=== PATIENT | male | born 1970 | race Caucasian/White ===

== ENCOUNTER 2018-08-06 14:41 | Inpatient (IN) ==
[2018-08-06] MEDS ORDERED: 0.9 % Sodium Chloride 1,000 ML IVC ONE (15:02)
[2018-08-06] MEDS ORDERED: methylPREDNISolone 125 MG/2 ML VIAL IVP ONE (15:02)
[2018-08-06] MEDS ORDERED: Ipratropium/Albuterol Neb 3 ML IH ONE (15:02)
--- NOTE | 2018-08-06 15:06 | Emergency Department Note ---
Disposition Clinical Impression: Splenomegaly, Thrombocytopenia, Hypokalemia Chest pain Qualifiers: Ischemic chest pain type: unspecified angina pectoris type Qualified Code(s): I25.9 - Anemia Qualifiers: Anemia type: unspecified type Qualified Code(s): D64.9 - Anemia, unspecified Disposition: Admitted As Inpatient Condition: Fair Time of Disposition: 16:55 General Adult HPI - General Chief complaint: ED Chest Pain Stated complaint: Chest pain Time Seen by Provider: 08/06/18 14:49 Source: patient Limitations: no limitations Nursing Notes Reviewed: Yes Vital Signs Reviewed: Yes - History of Present Illness HPI Narrative: 47yo male presents from home with bedside for evaluation of midsternal chest tightness with shortness of breath and cough. Actually one month ago, patient was diagnosed with bilateral otitis media and completed a course of amoxicillin. He still has difficulty hearing is still has pain in his ears with right greater than left. 2 weeks ago, patient finished a course of steroid and an antibiotic unknown to them and not listed in his chart. He was prescribed for respiratory symptoms. His respiratory symptoms have not improved and he continues to have cough with white sputum, shortness of breath with exertion. In the last several days, he has had midsternal chest tightness that is constant and unchanged with position or activity. Radiates strictly posterior to his back. His symptoms are not improved with his home albuterol nebulizer. PMH: COPD. Recent bilateral otitis media and recent "lung infection" both of which were managed outpatient. Hx hypokalemia on potassium supplementation. No history of hypertension, hyperlipidemia, CAD, diabetes. Patient does take aspirin 81 mg daily. Habits: Currently everyday smoker. ROS: positive: As above negative: Fever, chills, nausea, vomiting, unusual back pain. No ripping or tearing sensations. No numbness/weakness/tingling of the upper extremities. No neck pain. No change in bowel or bladder habits. No abdominal pain. Pain Scale: 10 - Related Data Previous Rx's Medication Instructions Recorded traMADol [Ultram] 50 mg PO Q6HR PRN #15 tablet 03/03/16 Albuterol Sulfate [Albuterol 2 puff IH Q4HR #1 inhaler 07/22/18 Inhaler] Loratadine [Claritin] 10 mg PO DAILY #14 capsule 07/22/18 PredniSONE [Deltasone] 60 mg PO DAILY #5 tablet 07/22/18 Allergies Allergy/AdvReac Type Severity Reaction Status Date / Time No Known Allergies Allergy Verified 08/06/18 14:45 All systems ED: reviewed and negative except as stated. Review of Systems: As Per HPI Past Medical History - Past Medical History Medical history: Reports: no medical history Psychiatric history: Reports: no psych history - Social History Smoking Status: Current every day smoker Smokeless Tobacco Status: No Alcohol use: Reports: occasionally Drug use: Reports: none Physical Exam Vital Signs Reviewed General: Patient is alert, oriented, and in mild distress-apparent discomfort; he is holding his chest, coughing, appears ill. Head: atraumatic, normocephalic Eye: normal appearance, PERRL, EOMI, no scleral icterus, no conjunctival injection ENT: mucous membranes moist, normal external ear exam. Right tympanic membrane has bulge with effusion. Left tympanic membrane with no bulge however appears dull with effusion. Neck: normal inspection, trachea midline, full ROM Chest: normal inspection, symmetric chest rise Respiratory: Good respiratory effort. Prolonged expiration phase. Right pulmonary vega have scant wheeze. Faint bibasilar fine crackles. Cardiovascular: Regular rate and rhythm. No clicks, rubs, gallops, or murmors. Normal heart sounds. Abdomen: Bowel sounds present normoactive x-4 quadrants. Abdomen is soft, nondistended, and nontender. No guarding or rebound. Musculoskeletal: Spontaneously moving all extremities. Skin: warm, dry, intact. Neuro: Alert and oriented x4. Sensation light touch intact. Psych: Patient's affect is appropriate for situation. - General Limitations: no limitations General appearance: alert, in no apparent distress Course Course Narrative: Clinically suspect patient's chest pain to be related to his pulmonary symptoms. Concerned as exam shows persistent effusion behind his tympanic membranes and concern for possibly outpatient management refractory pneumonia versus bronchitis versus acute exacerbation of COPD. patient given triple dose of DuoNeb's and 125 mg Solumedrol. Workup pending. EKG dated 08/02/20 1814:55 interpreted as sinus tachycardia with rate of 103. TN 135, QTC 422. Normal axis. Nonspecific ST-T changes. No previous EKG for comparison. Patient symptoms did not subjectively improved after nebulizers. His lung sounds did improve. Serum hematology shows no leukocytosis or leukocytopenia. Patient does have a erythrocytopenia and thrombocytopenia. Chest x-ray shows no acute cardiopulmonary process. Indeterminate nodular density on chest x-ray further evaluated by CT chest noncontrast. Incidentally , CT chest noncontrast showed nonspecific mild to moderate spinal megaly. This is concerning when taken in the context of his erythrocytopenia and thrombocytopenia. EKG is unremarkable. Troponin is normal. I discussed the above with the admitting hospitalist. He agrees to accept the patient for anemia, thrombus cytopenia, splenomegaly. Also discussed his recent otitis media, pulmonary history, and his hypokalemia. Chest X-Ray 08/06/18 15:03 IMPRESSION: 1. No acute cardiopulmonary process. 2. Indeterminate nodular density in the retrocardiac region on the lateral film, not well localized on the frontal film. Chest CT correlation recommended to exclude pulmonary nodule. D/ / 08/06/2018 15:27:53 Kashif John MD / [facility] Interpreting Provider: Kashif John MD Chest CT 08/06/18 15:59 IMPRESSION: 1. Bilateral lower lobe atelectasis and parenchymal scar without acute airspace consolidation. 2. Mild emphysema. 3. Multiple scattered nonspecific subcentimeter noncalcified nodules throughout both lungs, most likely reflecting benign granulomata. One of these nodules likely represents the previously identified chest x-ray opacity. While likely benign, suggest continued CT follow-up of these nodules, as advised below. 4. New nonspecific [id number] splenomegaly, of questionable clinical significance. RECOMMENDATIONS: Fleischner Society guidelines for follow-up and management of incidentally detected pulmonary nodules: Multiple Solid Nodules: Nodule size equals 6-8 mm In a low-risk patient, CT at 3-6 months, then consider CT at 18-24 months. In a high-risk patient, CT at 3-6 months, then CT at 18-24 months. Radiology 2017 http://pubs.[facility].org/doi/full/10.1148/radiol.[email or web address] D/ / 08/06/2018 16:43:45 Ti Caceres MD / [facility] Interpreting Provider: Ti Caceres MD Vital Signs Temperature 97.8 F 08/06/18 14:44 Pulse Rate 107 08/06/18 14:44 Respiratory Rate 22 08/06/18 14:44 Blood Pressure 146/83 08/06/18 14:44 O2 Sat by Pulse Oximetry 97 08/06/18 14:44 Temperature 97.8 F 08/06/18 14:56 Pulse Rate 107 08/06/18 17:05 Respiratory Rate 22 08/06/18 17:05 Blood Pressure 140/90 08/06/18 17:05 O2 Sat by Pulse Oximetry 96 08/06/18 17:05 Oxygen Delivery Oxygen Delivery Room Air Medical Decision Making - Lab Data Result diagrams: 08/06/18 15:03 08/06/18 15:03 Lab Results 08/06/18 08/06/18 08/06/18 Range/Units 15:03 15:03 15:33 WBC 5.0 (4.3-11.1) K/mcL RBC 3.72 L (4.19-5.50) M/mcL Hgb 11.4 L (12.9-16.9) g/dL Hct 33.9 L (37.5-50.1) % MCV 91.1 (83.0-100.0) fL MCH 30.6 (28.0-33.3) pg MCHC 33.6 (31.6-35.5) g/dL RDW 15.5 H (11.5-14.5) % Plt Count 51 L (140-400) K/mcL MPV 9.3 L (9.4-12.4) fL Immature Gran % 3.4 (0-4) % Seg Neutrophils % 4.1 % Lymphocytes % 40.7 % Monocytes % 51.2 % Eosinophils % 0.2 % Basophils % 0.4 % Neutrophils # 0.2 L (1.6-8.9) K/mcL Lymphocytes # 2.0 (0.6-4.6) K/mcL Monocytes # 2.6 H (0.0-1.3) K/mcL Eosinophils # 0.0 (0.0-0.6) K/mcL Basophils # 0.0 (0.0-0.2) K/mcL Nucleated RBCs/100 WBC 0.8 H (0) /100 WBC Reactive Lymphocytes Present A (Not Present) Platelet Estimate Decreased L (Normal) Immature Plt Fraction 3.4 (1.1-6.1) % Sodium 137 (136-145) mEq/L Potassium 3.1 L (3.5-5.1) mEq/L Chloride 100 (98-107) mEq/L Carbon Dioxide 27 (23-29) mEq/L BUN 24 H (6-20) mg/dL Creatinine 1.24 (0.70-1.30) mg/dL Est GFR ( Amer) > 60 (> 60) Est GFR (Non-Af Amer) > 60 (> 60) BUN/Creatinine Ratio 19 (6-26) Glucose 175 H (70-105) mg/dL Calculated Osmolality 292 (280-300) Lactic Acid 1.3 (0.5-2.2) mmol/L Calcium 9.0 (8.6-10.3) mg/dL Troponin I < 0.03 (< 0.04) ng/mL Salicylates < 2.5 L (15.0-30.0) mg/dL Attestation Statement - Attestation Attestation: I examined this patient and my medical decision-making was reviewed with the Resident Physician. I agree with the documented findings, disposition and treatment plan as described except to the extent set forth below. Hypokalemia, thrombocytopenia, transaminitis, chest pain. We will admit for evaluation of spinal megaly in the setting of trauma set up any and chest pain.
[2018-08-06 15:39] LABS: Nucleated Red Blood Cells 0.8 /100 WBC (0)
[2018-08-06 15:41] LABS: Basophils % 0.4 %; Eosinophils % 0.2 %; Hematocrit 33.9 % (37.5-50.1); Hemoglobin 11.4 g/dL (12.9-16.9); Immature Granulocytes % 3.4 % (0-4); Immature Platelets 3.4 % (1.1-6.1); Lymphocytes % 40.7 %; Mean Corpuscular HGB Conc 33.6 g/dL (31.6-35.5); Mean Corpuscular Hemoglobin 30.6 pg (28.0-33.3); Mean Corpuscular Volume 91.1 fL (83.0-100.0); Mean Platelet Volume 9.3 fL (9.4-12.4); Monocytes % 51.2 %; Neutrophils # 0.2 K/mcL (1.6-8.9); Red Blood Count 3.72 M/mcL (4.19-5.50); Red Cell Distribution Width 15.5 % (11.5-14.5); Segmented Neutrophils % 4.1 %
[2018-08-06 16:04] LABS: Monocytes # 2.6 K/mcL (0.0-1.3); Platelet Count 51 K/mcL (140-400)
[2018-08-06 16:06] LABS: BUN/Creatinine Ratio 19 (6-26); Blood Urea Nitrogen 24 mg/dL (6-20); Carbon Dioxide 27 mEq/L (23-29); Chloride 100 mEq/L (98-107); Glucose 175 mg/dL (70-105); Osmolality,Calculated 292 (280-300); Potassium 3.1 mEq/L (3.5-5.1); Reactive Lymphocytes Present (Not Present); Sodium 137 mEq/L (136-145); Troponin I < 0.03 ng/mL (< 0.04); eGFR For Non-African Americans > 60 (> 60)
[2018-08-06 16:11] LABS: Platelet Estimate Decreased (Normal)
[2018-08-06 17:17] LABS: Salicylate < 2.5 mg/dL (15.0-30.0)
[2018-08-06] MEDS ORDERED: traMADol 50 MG TABLET PO PRN (17:58)
[2018-08-06] MEDS ORDERED: Naloxone 0.4 MG/ML INJ IVP PRN (17:58)
[2018-08-06] MEDS ORDERED: Acetaminophen 325 MG TABLET PO PRN (17:58)
[2018-08-06] MEDS ORDERED: *HR* Promethazine 25 MG/ML VIAL IVP PRN (18:04)
[2018-08-06 18:05] LABS: Immature Reticulocyte % 17.6 % (11.0-38.0); Retculocyte # 0.02 M/mcL (0.05-0.10); Reticulocyte % 0.6 % (1.6-2.8)
[2018-08-06 18:20] LABS: Albumin 3.4 g/dL (3.5-5.7); Albumin/Globulin Ratio 1.5 (1.1-2.2); Bilirubin,Direct 0.4 mg/dL (0.0-0.2); Bilirubin,Indirect 0.4 mg/dL (0.0-1.2); Bilirubin,Total 0.8 mg/dL (0.3-1.0); Globulin 2.2 g/dL (2.4-3.5); Total Protein 5.6 g/dL (6.4-8.9)
--- NOTE | 2018-08-06 18:22 | Internal Med History&Physical ---
<DanetteallisonalexyRolando bhatt - Last Filed: 08/06/18 19:35> Date of Encounter: 08/06/18 Time of Encounter: 17:00 Internal Medicine - H&P: HPI Chief complaint: CP/Weakness/SOB Plans for Post Hospital Care: Home History of present illness: Mr. Manzo is a 47 year old male w/PMH of GERD presents from the ED w/CC of CP that began today and patient describes as centralized chest pain with radiation to center of back and shooting electrical pain down left leg. Associated sx: nausea, vomiting, SOB. No alleviating or aggravating factors. Denies previous cardiac hx or occurrence of sx. No recent cardiac w/u. Pt. also states he has been sick for the past 4 weeks after he swam several times in [facility]. Pt. was diagnosed w/bilateral ear infections and placed on PO amoxicillin. States it didn't help. Was seen in ED 2 weeks ago and placed on a different abx and given steroids d/t dx of PNA at the time. Pt. reports fever, chills, nausea, vomiting, abdominal pain, ear pain (worse in right than left), night sweats, allover aches and pains. Pt. reports headache associated w/ear pain but denies changes in vision, unusual bleeding, cough, chest congestion, diarrhea, constipation, dizziness, lightheadedness, pre-syncope, or syncope. Past Med Surg Social Fam HX - Past Medical History Source: patient, old records reviewed, obtained from family Medical history: GERD Psychiatric history: no psych history - Past Surgical History Additional surgical history: chicken bone removal- - Social History Smoking Status: Current every day smoker Packs per day: 2 PPD Smokeless Tobacco Status: No Alcohol use: occasionally Drug use: none Occupational status: employed Current living situation: Home, With Family Activity Level: Independent ambulation Recent Out of Country Travel Within the Last 8 Weeks: No Exposure or Possible Exposure to Illness During Travel: No - Family History Father Race: Family Member Ethnicity: Non- Living Status: Age at : 50 Cause of : Thyroid cancer Hx Family Cancer: Yes (Thyroid) Mother Race: Family Member Ethnicity: Non- Living Status: Still Living Hx Family Cardiac Disorders: Yes (Triple bypass, CAD) Hx Family Respiratory Disorders: Yes (COPD, Asthma) Hx Family Endocrine Disorder: Yes (DM) Brother Race: Family Member Ethnicity: Non- Living Status: Still Living Hx Family Endocrine Disorder: Yes (DM) Sister Race: Family Member Ethnicity: Non- Living Status: Still Living Hx Family Cardiac Disorders: Yes (Heart murmur) Internal Medicine - H&P: Meds traMADol [Ultram] 50 mg PO Q6HR PRN #15 tablet 03/03/16 [Rx] Albuterol Sulfate [Albuterol Inhaler] 2 puff IH Q4HR #1 inhaler 07/22/18 [Rx] Loratadine [Claritin] 10 mg PO DAILY #14 capsule 07/22/18 [Rx] PredniSONE [Deltasone] 60 mg PO DAILY #5 tablet 07/22/18 [Rx] 3 Allergy/AdvReac Type Severity Reaction Status Date / Time No Known Allergies Allergy Verified 08/06/18 14:45 All Systems PM: A 10-system review of systems was performed and is negative for pertinent findings except as documented above in the HPI. - Constitutional Constitutional: as per HPI, chills, fatigue, fever(s), weakness, no night sweats - EENT Eyes: no change in vision, no discharge, no pain, no photophobia Ears: as per HPI, decreased hearing (Right ear), ear pain (Bilateral), no ear discharge, no tinnitus Nose, mouth and throat: no dysphagia, no nasal discharge, no neck pain, no sore throat - Breasts Breasts: as per HPI - Cardiovascular Cardiovascular ROS IM: as per HPI, chest pain, dyspnea, dyspnea on exertion, no diaphoresis, no lightheadedness, no palpitations, no syncope - Respiratory Respiratory: dyspnea, dyspnea on exertion, no cough, no wheezing, no excessive phlegm production - Gastrointestinal Gastrointestinal: as per HPI, abdominal pain, nausea, vomiting, no diarrhea, no hematemesis, no hematochezia, no melena - Genitourinary Genitourinary ROS male: as per HPI - Musculoskeletal Musculoskeletal ROS IM: no numbness, no tingling - Integumentary Integumentary IM: no rash, no unusual bruising - Neurological Neurological ROS: no confusion, no convulsions, no focal weakness, no numbness, no tingling, no tremor(s) - Psychiatric Psychiatric: as per HPI - Endocrine Endocrine IM: as per HPI - Hematologic/Lymphatic Hematologic/Lymphatic: as per HPI, no easy bruising - Allergic/Immunologic Allergic/Immunologic: as per HPI - Constitutional Vitals: Temp Pulse Resp BP Pulse Ox 97.8 F 107 22 140/90 96 08/06/18 14:56 08/06/18 17:05 08/06/18 17:05 08/06/18 17:05 08/06/18 17:05 General appearance: Present: cooperative, mild distress (Weakness/SOB), A&O X 3 , pleasant, answers questions appropriately Exam: Patient examined at bedside in ED. Patient is ill-appearing and complaining of shortness of breath with exertion, fever, chills, nausea, vomiting, and generalized weakness for the past 4 weeks. Patient also reports unresolved bilateral otitis media and failed outpatient therapy 2. On admission, patient found to be thrombocytopenic with splenomegaly of unknown etiology. Patient also reports chest pain that began this morning as centralized in chest with radiation to left leg and center of back accompanied by shortness of breath, nausea, vomiting. Patient denies any other complaints at this time. Sepsis criteria currently due to heart rate of 107 and respiration rate of 22 with infection source likely otitis media bilaterally. VS: HR 107, RR 22, temp 97.8F , BP 146/83, SPO2 97% on room air. - Head Head exam: Present: atraumatic, normocephalic - Eye Eye exam: Present: PERRL, conjuntiva pink, sclera anicteric Pupils: Present: PERRL - ENT ENT exam: Present: normal exam - Neck Neck exam general surgery: Present: lymphadenopathy (Mild under ears), supple, trachea midline - Respiratory Respiratory exam: Present: CTAB. Absent: accessory muscle use, rales, rhonchi, wheezes - Cardiovascular Cardiovascular exam: Present: +S1, +S2, tachycardia - GI/Abdominal GI/Abdominal exam: Present: normal bowel sounds, soft, splenomegaly, no peritoneal signs. Absent: distended, tenderness - Rectal Rectal exam: Present: deferred - Additional comments: exam deferred. - Extremities Exam Extremities exam: Present: warm, radial pulses palpable and symmetrical. Absent : calf tenderness, cyanotic, pedal edema - Back Exam Back exam: Present: normal inspection - Neurological Exam Neurological exam: Present: alert, CN II-XII intact, oriented X3, no focal deficits. Absent: pronater drift, facial droop, speech deficit - Psychiatric Psychiatric exam: Present: normal affect, normal mood - Skin Skin exam: Present: dry, intact Internal Med - H&P Results - Labs CBC & Chem 7: 08/06/18 15:03 08/06/18 15:03 - EKG Data EKG shows normal: sinus rhythm - EKG Data Prior EKG available for review: no EKG comments: 08/06/18 18:48 EKG dated 08/06/18 shows sinus tachycardia with rate greater than 99. - Diagnostic Studies Chest x-ray Additional comments: Impressions Chest X-Ray 08/06/18 15:03 IMPRESSION: 1. No acute cardiopulmonary process. 2. Indeterminate nodular density in the retrocardiac region on the lateral film, not well localized on the frontal film. Chest CT correlation recommended to exclude pulmonary nodule. D/ / 08/06/2018 15:27:53 Kashif John MD / [facility] Interpreting Provider: Kashif John MD CT scan - chest Additional comments: Impressions Chest CT 08/06/18 15:59 IMPRESSION: 1. Bilateral lower lobe atelectasis and parenchymal scar without acute airspace consolidation. 2. Mild emphysema. 3. Multiple scattered nonspecific subcentimeter noncalcified nodules throughout both lungs, most likely reflecting benign granulomata. One of these nodules likely represents the previously identified chest x-ray opacity. While likely benign, suggest continued CT follow-up of these nodules, as advised below. 4. New nonspecific [id number] splenomegaly, of questionable clinical significance. RECOMMENDATIONS: Fleischner Society guidelines for follow-up and management of incidentally detected pulmonary nodules: Multiple Solid Nodules: Nodule size equals 6-8 mm In a low-risk patient, CT at 3-6 months, then consider CT at 18-24 months. In a high-risk patient, CT at 3-6 months, then CT at 18-24 months. Radiology 2017 http://pubs.rsna.org/doi/full/10.1148/radiol.[email or web address] D/ / 08/06/2018 16:43:45 Ti Caceres MD / [facility] Interpreting Provider: Ti Caceres MD - Assessment and plan (1) Chest pain Current Visit: Yes Status: Acute Assessment and plan: Acute CP that began today and patient describes as centralized chest pain with radiation to center of back and shooting electrical pain down left leg. Associated sx: nausea, vomiting, SOB. No alleviating or aggravating factors. Denies previous cardiac hx or occurrence of sx. No recent cardiac w/u. No CP during assessment. Pt. states SOB begins w/exertion. Echocardiogram. Continuous cardiac telemetry. Initial troponin less than 0.03. Will trend. Nothing by mouth at midnight Wednesday for planned nuclear pharm stress test on Wednesday if troponins remain within normal limits. Consider cardiology consult if troponins, echocardiogram, and/or stress test results abnormal. ASA. Lipitor 80 mg once. SL nitroglycerin when necessary. Pt. discussed w/Dr. Moreno who agrees w/plan of care. Pt. is high risk d/t current CP /SOB/N/V; unresolved bilateral otitis media for the past 4 weeks and failure of OP therapy x2, sepsis criteria, current thrombocytopenia and splenomegaly of unknown etiology, current anemia of unknown etiology, and risk factors of recent swimming in [place] and symptoms of generalized weakness and feeling ill for the past 4 weeks. Inpatient. Qualifiers: Ischemic chest pain type: unspecified angina pectoris type Qualified Code(s ): I25.9 - Chronic ischemic heart disease, unspecified (2) Sepsis Current Visit: Yes Status: Acute Assessment and plan: Acute sepsis criteria w/HR of 107 and RR of 22. Bilateral otitis media present for the past 4 weeks w/failed OP therapy x2. Pt. also reports swimming in [facility] 6 weeks ago and feeling weak/sick for the past 4 weeks. Blood cultures x2 ordered. Respiratory infection panel d/t recent PNA and flu-like sx. EBV and Monotest. Lyme antibody. LR IVC @ 75 mLs/HR. Lactic 1.3. IVPB Rocephin 2,000 mg daily for infection coverage of resistant otitis media. Will adjust abx coverage based on culture and panel results if warranted. ID consult ordered and discussed w/Dr. Bowens and I appreciate the consult and recommendations as always. Monitor pt. and f/u labs closely for signs of increasing infection. Qualifiers: Sepsis type: sepsis due to unspecified organism Qualified Code(s): A41.9 - Sepsis, unspecified organism (3) Otitis media, chronic, bilateral Current Visit: Yes Status: Acute Assessment and plan: Acute on chronic bilateral otitis media for the past 4 weeks. Pt. reports swimming in [place] 6 weeks ago and feeling sick for the past 4 weeks. Bilateral ear infections present for 4 weeks and pt. has failed OP abx therapy x2. IVPB Rocephin 2,000 mg daily ordered for infection coverage. ENT consult ordered and discussed w/Dr. Bach and I appreciate the consult and recommendations as always. Stair-step pain medications for pain mgmt. (4) Weakness generalized Current Visit: Yes Status: Acute Assessment and plan: Acute on chronic generalized weakness for the past 4 weeks. Pt. reports swimming [email or web address] times during vacation 6 weeks ago and feeling sick for the past 4 weeks. ID consult ordered and discussed w/Dr. Bowens and I appreciate the consult and recommendations as always. Falls/safety precautions. Up with assist only. (5) SOB (shortness of breath) Current Visit: Yes Status: Acute Assessment and plan: Acute SOB w/CP sx. Denies home O2 use. Reports being dxd w/PNA two weeks ago and placed on PO steroids and abx. CXR today shows no acute cardiopulmonary process. Indeterminate nodular density in the retrocardiac region on the lateral film not well localized on the frontal film. Chest CT correlation recommended to exclude pulmonary nodule. Supplemental O2 w/titration and SpO2 monitoring PRN. (6) Nausea & vomiting Current Visit: Yes Status: Acute Assessment and plan: Acute nausea and vomiting. IVP Phenergan 12.5 mg Q6HR PRN for N/V. Monitor I&O. Clear liquid diet to be advanced as tolerated. Qualifiers: Vomiting type: cyclical vomiting Vomiting Intractability: intractable Qualified Code(s): G43.A1 - Cyclical vomiting, intractable (7) Thrombocytopenia Current Visit: Yes Status: Acute Assessment and plan: Acute thrombocytopenia w/platelets of 51 on admission. Unknown etiology. Denies hx of cancer or being immunocompromised. Monotest and EBV ordered. HemeOnc consult ordered and discussed w/Dr. Joshua and I appreciate the consult and recommendations as always. Monitor pt. and f/u labs. (8) Splenomegaly Current Visit: Yes Status: Acute Assessment and plan: Acute splenomegaly of unknown etiology. EBV and Monotests ordered. Platelets 51. HemeOnc consult ordered and discussed w/Dr. Joshua and I appreciate the consult and recommendations as always. Monitor pt. and f/u labs. (9) Hypokalemia Current Visit: Yes Status: Acute Assessment and plan: Acute hypokalemia w/potassium of 3.1 on admission. Pt. received 40 mEq PO once in ED. Will re-check potassium at 23:00. Continuous cardiac telemetry. (10) Hyperglycemia Current Visit: Yes Status: Acute Assessment and plan: Acue hyperglycemia of 175 on admission, likely d/t steroids prescribed for PNA. Denies hx of DM but mother and brother have DM. BG checks ACHS. Will add correction sliding scale insulin if warranted. (11) Anemia Current Visit: Yes Status: Acute Assessment and plan: Acute anemia of unknown etiology. Pt. denies hx or unusual bleeding. Hepatic panel. B12, Folate, and Iron profiles ordered. Monitor f/u labs closely. Qualifiers: Anemia type: unspecified type Qualified Code(s): D64.9 - Anemia, unspecified (12) GERD (gastroesophageal reflux disease) Current Visit: Yes Status: Chronic Assessment and plan: Hx of chronic GERD. GI cocktail. Will use PPIs judiciously d/t current splenomegaly. IVP Phenergan 12.5 mg Q6HR PRN for N/V. Qualifiers: Esophagitis presence: esophagitis presence not specified Qualified Code(s) : K21.9 - Gastro-esophageal reflux disease without esophagitis (13) DVT prophylaxis Current Visit: Yes Status: Acute Assessment and plan: Bilateral SCDs on LEs for DVT prophylaxis d/t current thrombocytopenia. - Time Spent With Patient Total time spent is greater than 50% in coordination of care (as documented) at patient's floor/unit and/or counseling patient: Greater than 35 minutes <Chu Moreno T - Last Filed: 08/07/18 07:53> Date of Encounter: 08/07/18 Internal Medicine - H&P: HPI History of present illness: Mr. Manzo is a 47 year old male All Systems PM: A 10-system review of systems was performed and is negative for pertinent findings except as documented above in the HPI. - Constitutional Vitals: Temp Pulse Resp BP Pulse Ox 97.9 F 91 16 125/85 91 08/07/18 04:17 08/07/18 04:17 08/07/18 04:17 08/07/18 04:17 08/07/18 04:17 Internal Med - H&P Results - Labs CBC & Chem 7: 08/07/18 02:36 08/07/18 02:36 Labs: Short CBC 08/07/18 Range/Units 02:36 WBC 10.2 D (4.3-11.1) K/mcL Hgb 10.6 L (12.9-16.9) g/dL Hct 31.6 L (37.5-50.1) % Plt Count 55 L (140-400) K/mcL Neutrophils # 0.4 L (1.6-8.9) K/mcL BMP 08/06/18 08/07/18 22:31 02:36 Sodium 138 Potassium 4.2 D 4.2 Chloride 104 Carbon Dioxide 25 BUN 21 H Creatinine 1.05 Glucose 169 H Calcium 8.8 Cardiac Enzymes 08/06/18 08/07/18 Range/Units 20:48 02:36 Troponin I < 0.03 < 0.03 (< 0.04) ng/mL Liver Function 08/06/18 08/07/18 Range/Units 17:47 02:36 Total Bilirubin 0.8 0.5 (0.3-1.0) mg/dL Direct Bilirubin 0.4 H (0.0-0.2) mg/dL AST 85 H 93 H (13-39) Units/L ALT 148 H 138 H (7-52) Units/L Alkaline Phosphatase 93 89 (34-104) Units/L Albumin 3.4 L 3.3 L (3.5-5.7) g/dL - Assessment and plan (1) Chest pain Current Visit: Yes Status: Acute Qualifiers: Ischemic chest pain type: unspecified angina pectoris type (2) Splenomegaly Current Visit: Yes Status: Acute (3) Thrombocytopenia Current Visit: Yes Status: Acute (4) Anemia Current Visit: Yes Status: Acute Qualifiers: Anemia type: unspecified type Qualified Code(s): D64.9 - Anemia, unspecified (5) Hypokalemia Current Visit: Yes Status: Acute (6) Hyperglycemia Current Visit: Yes Status: Acute (7) SOB (shortness of breath) Current Visit: Yes Status: Acute (8) Nausea & vomiting Current Visit: Yes Status: Acute Qualifiers: Vomiting type: cyclical vomiting Vomiting Intractability: intractable Qualified Code(s): G43.A1 - Cyclical vomiting, intractable (9) GERD (gastroesophageal reflux disease) Current Visit: Yes Status: Chronic Qualifiers: Esophagitis presence: esophagitis presence not specified Qualified Code(s) : K21.9 - Gastro-esophageal reflux disease without esophagitis (10) DVT prophylaxis Current Visit: Yes Status: Acute (11) Weakness generalized Current Visit: Yes Status: Acute (12) Sepsis Current Visit: Yes Status: Acute Qualifiers: Sepsis type: sepsis due to unspecified organism Qualified Code(s): A41.9 - Sepsis, unspecified organism (13) Otitis media, chronic, bilateral Current Visit: Yes Status: Acute - Time Spent With Patient Total time spent is greater than 50% in coordination of care (as documented) at patient's floor/unit and/or counseling patient: - Attending Attestation Patient independently interviewed, assessed and examined by myself independent of the nurse practitioner. Mr. Manzo is a 47-year-old male with a past history of heavy tobacco dependence who presented with a 4-5 week period of progressive body aches with severe night sweats. Initial concern was for chest pain however further history elicited symptoms more involving body pains. The patient has recently had otitis media symptoms treated with 2 rounds of antibiotics as an outpatient with persistent symptoms. Of note the patient did recently travel to a [place] and went swimming in the [place] about one week prior to the symptoms beginning. Patient denies any rashes or diarrhea. On physical exam the patient is ill- appearing in mild distress secondary to discomfort. He describes episodes of drenching night sweats and I witnessed one of these episodes upon my evaluation. Patient found to have thrombocytopenia and spleenomegaly and mild anemia as well. He was empirically started on Rocephin and we will admit the patient as inpatient for failing outpatient treatment. We will have patient evaluated by hematology, infectious disease, and ENT secondary to ID recommendation. We will closely follow his platelet count. Extensive infectious disease workup initiated as well as work up for hemolysis. There is also concern for hematologic malignancy ie lymphoma. Peripheral smear ordered. Will consider flow cytometry pending initial work up and hemeonc recs. General - moderate distress secondary to pain and ill appearing with excessive diaphoresis Cardio - regular rate and rhythm no murmurs appreciated Respiratory - coarse breath sounds throughout Derm -no obvious rashes appreciated
[2018-08-06] MEDS ORDERED: GI Cocktail 40 ML EACH PO ONE (18:27)
[2018-08-06] MEDS ORDERED: Nitroglycerin 0.4 MG TAB.SUBL SL PRN (19:26)
[2018-08-06] MEDS ORDERED: Aspirin Enteric Coated 325 MG Tablet PO SCH (19:30)
[2018-08-06] MEDS ORDERED: Aspirin Enteric Coated 325 MG Tablet PO STA (19:36)
[2018-08-06] MEDS: cefTRIAXone 2,000 MG in 0.9 % Sodium Chloride Mini Bag 100 ML IVPB SCH (20:39)
[2018-08-06] MEDS: Ringers Solution, Lactated 1,000 ML IVC SCH (20:39)
[2018-08-06 21:57] LABS: Adenovirus Not Detected (Not Detect); Bordetella Pertussis Not Detected (Not Detect); Chlamydophila pneumoniae Not Detected (Not Detect); Coronavirus 229E Not Detected (Not Detect); Coronavirus HKU1 Not Detected (Not Detect); Coronavirus NL63 Not Detected (Not Detect); Coronavirus OC43 Not Detected (Not Detect); Human Metapneumovirus Not Detected (Not Detect); Human Rhinovirus/Enterovirus DETECTED (Not Detect); Influenza A Subtype 2009 H1 Not Detected (Not Detect); Influenza A Untypeable Not Detected (Not Detect); Influenza B Not Detected (Not Detect); Mycoplasma pneumoniae Not Detected (Not Detect); Parainfluenza Virus 1 Not Detected (Not Detect); Parainfluenza Virus 2 Not Detected (Not Detect); Parainfluenza Virus 3 Not Detected (Not Detect); Parainfluenza Virus 4 Not Detected (Not Detect); Respiratory Syncytial Virus Not Detected (Not Detect)
[2018-08-07 02:45] LABS: Eosinophils % 0.2 %; Hemoglobin 10.6 g/dL (12.9-16.9)
[2018-08-07 02:47] LABS: Basophils % 0.3 %; Hematocrit 31.6 % (37.5-50.1); Immature Granulocytes % 4.1 % (0-4); Immature Platelets 3.1 % (1.1-6.1); Lymphocytes # 2.4 K/mcL (0.6-4.6); Lymphocytes % 23.1 %; Mean Corpuscular HGB Conc 33.5 g/dL (31.6-35.5); Mean Corpuscular Hemoglobin 30.7 pg (28.0-33.3); Mean Corpuscular Volume 91.6 fL (83.0-100.0); Mean Platelet Volume 9.8 fL (9.4-12.4); Monocytes % 68.9 %; Neutrophils # 0.4 K/mcL (1.6-8.9); Nucleated Red Blood Cells 0.5 /100 WBC (0); Red Blood Count 3.45 M/mcL (4.19-5.50); Red Cell Distribution Width 15.4 % (11.5-14.5); Segmented Neutrophils % 3.4 %
[2018-08-07 02:48] LABS: Platelet Count 55 K/mcL (140-400)
[2018-08-07 03:04] LABS: Platelet Estimate Decreased (Normal); Reactive Lymphocytes Present (Not Present)
[2018-08-07 03:05] LABS: Alanine Aminotransferase 138 Units/L (7-52); Albumin 3.3 g/dL (3.5-5.7); Albumin/Globulin Ratio 1.4 (1.1-2.2); Alkaline Phosphatase 89 Units/L (34-104); Aspartate Amino Transferase 93 Units/L (13-39); BUN/Creatinine Ratio 20 (6-26); Bilirubin,Total 0.5 mg/dL (0.3-1.0); Blood Urea Nitrogen 21 mg/dL (6-20); Calcium 8.8 mg/dL (8.6-10.3); Carbon Dioxide 25 mEq/L (23-29); Chloride 104 mEq/L (98-107); Chol/HDL Ratio 3.4 (0-4.9); Cholesterol 89 mg/dL (< 200); Globulin 2.3 g/dL (2.4-3.5); Glucose 169 mg/dL (70-105); HDL Cholesterol 26 mg/dL (40-59); LDL Cholesterol,Calculated 48 mg/dL (0-99); Magnesium 2.1 mg/dL (1.6-2.6); Osmolality,Calculated 293 (280-300); Potassium 4.2 mEq/L (3.5-5.1); Sodium 138 mEq/L (136-145); Total Protein 5.6 g/dL (6.4-8.9); Triglycerides 74 mg/dL (< 150); eGFR For Non-African Americans > 60 (> 60)
--- NOTE | 2018-08-07 08:43 | ENT - Consult Note ---
Date of Encounter: 08/08/18 Time of Encounter: 08:40 Assessment and Plan (1) Otitis media, chronic, bilateral Current Visit: Yes Status: Chronic On exam today, the patient has bilateral chronic serous otitis media which is not suppurative/bacterial in appearance. Therefore I do not feel that he has an acute or chronic bacterial ear infection. He likely has developed serous otitis media after an upper respiratory infection one month ago and because of his nasal polyps and smoking history, this led to eustachian tube dysfunction and therefore development of his bilateral serous otitis media. Additional antibiotics for treatment of his serous otitis media will not improve the fluid in the middle ear space. That is why it did not improve with 2 courses of antibiotics over the past month. Once this patient with nasal polyps and allergic rhinitis and a heavy smoking history develops chronic serous otitis media, it can take up to 3 months for the fluid to resolve on its own with maximal medical treatment. The patient has not been treated medically for either his nasal polyps or his serous otitis media except for being given 2 courses of antibiotics. I discussed with the patient that for the fluid to drain through the eustachian tubes, I would recommend the followin. Stop smoking 2. Fluticasone nasal spray 2 sprays each nostril twice daily. I discussed with the patient that he needs to use this medication daily because if he does not medication will not be effective in helping to resolve the fluid in his ears or treat the nasal polyps. 3. Antihistamine/decongestant combinations such as Claritin D twice daily. I discussed with the patient he will also need to take this medication twice daily for the foreseeable future. I discussed with the patient that if the fluid does not resolve after 3 months of maximum medical therapy, he can be considered for myringotomy with possible pressure equalization tube placement. But this can be evaluated as an outpatient after 3 months of the maximal medical therapy described above. I would not recommend ear tube placement at this time because the fluid has a good chance of resolving on its own with the above therapy. Again, I do not feel that he has an infectious serous otitis media and therefore does not require antibiotic treatment for his serous otitis media but rather eustachian tube dysfunction which has not been properly treated to allow the eustachian tube to open and the middle ear fluid to drain normally. The patient's intermittent dizziness when he tilts his head back when lying down is likely related to the serous otitis media and should improve as the fluid resolves. He does not require any treatment for the dizziness but rather treatment for the chronic serous otitis media as described above. I do not feel that the bilateral chronic serous otitis media or nasal polyps is the reason why he has decreased energy, chest pain, cough or the reason for his splenomegaly, or thrombocytopenia. He has no evidence of chronic or acute bacterial sinusitis but rather nasal polyps. He does have a normal white count. We will defer to primary service for workup of the chest pain, malaise, cough, splenomegaly and thrombocytopenia. Discussed above in detail with patient and his . Questions answered. Please have patient follow up in 1 month in the ENT clinic after discharge for both a hearing test with audiology and further evaluation of his ear fluid and nasal polyps by the ENT service as an outpatient. I will sign off. Please call me if you have any questions. (2) Nasal sinus polyp Current Visit: Yes Status: Chronic On exam today, the patient has significant nasal polyps bilaterally. He has not been diagnosed with this before but likely has been going on for a significant period of time given the extent of the nasal polyps. He has no evidence of acute or chronic bacterial sinusitis on exam. Therefore I do not feel that he needs to have a CT sinus at this visit. He does not have evidence of bacterial sinusitis on exam and therefore no antibiotic treatment for his nasal polyps is required. He also is asymptomatic from his nasal polyps. I will start him on fluticasone nasal spray 2 sprays each nostril twice daily given the extent of his nasal polyps as well as an antihistamine/decongestant combination for his untreated allergic rhinitis and nasal polyps. He has likely developed bilateral chronic serous otitis media after an upper respiratory infection one month ago and it has not resolved yet. Please see below A/P for treatment for chronic bilateral serous otitis media. He will need to be followed up as an outpatient for his nasal polyps for further workup and treatment. I discussed with the patient and his that he will need to stay on the fluticasone nasal spray twice daily as well as the antihistamine/decongestant twice daily for the foreseeable future given his allergic rhinitis symptoms and nasal polyp development. I also discussed with the patient that he should stop smoking as this is significantly contributing to his sinus/nasal/ear problems. (3) Other allergic rhinitis Current Visit: Yes Status: Chronic The patient has symptoms of untreated allergic rhinitis which is likely lead to the development of his nasal polyps. I have discussed with the patient that he needs to take the fluticasone nasal spray and antihistamine/decongestant combination twice daily for treatment of this. He will need follow-up as an outpatient with the ENT service for further treatment of his allergic rhinitis and nasal polyps. (4) Cigarette nicotine dependence Current Visit: Yes Status: Chronic The patient states that he smokes 2 packs a day for many years. I have discussed with the patient that this is contributing to his nasal and sinus issues. I also discussed his increased risk of head and neck cancer given his long smoking history. I have encouraged the patient to stop smoking. Qualifiers: Qualified Code(s): F17.210 - Nicotine dependence, cigarettes, uncomplicated History of Present Illness Consult date: 08/07/18 Reason for ENT Consult: other (Bilateral chronic middle ear fluid) Comment: bilateral middle ear fluid Requesting physician: Celio Galindo History of present illness: The patient is a 47-year-old male who complains of decreased hearing in both ears for the past month after he had an upper respiratory infection. He states that he had nasal congestion and cold-like symptoms proximal and one month ago and gradually notices hearing was decreased and his ears felt full. He went to the urgent care and was treated for an ear infection with antibiotics. He completed the antibiotic course and did not improve. He went back to the urgent care 2 weeks later because he had increased cough and his hearing had not improved and was again treated for pneumonia with antibiotic and steroids. He continues to feel malaise, body aches, decreased energy and no change in his hearing. He denies any otorrhea, or otalgia. He states that intermittently when he tilts his head back when lying down he feels dizzy and has to sit up. This does not happen every time and has not happened recently. He went to the emergency room last night because he was having chest pain and was not improving with his decreased energy and appetite. He has a history of smoking 2 packs a day for many years. He also describes sneezing and allergy symptoms especially when he is working out and the vega. He has also had nasal congestion and was treated with an antihistamine, Claritin, and had improvement of his symptoms. However he does not take this medication every day and has not taken it in the past few months. He denies any postnasal drip or rhinorrhea. Past Med Surg Social Fam HX - Past Medical History Medical history: no medical history, GERD Psychiatric history: no psych history - Past Surgical History Additional surgical history: chicken bone removal- - Social History Smoking Status: Heavy tobacco smoker Packs per day: 2 Smokeless Tobacco Status: No Alcohol use: occasionally Drug use: none Occupational status: employed - Family History Father Race: Family Member Ethnicity: Non- Living Status: Age at : 50 Cause of : Thyroid cancer Hx Family Cancer: Yes (Thyroid) Mother Race: Family Member Ethnicity: Non- Living Status: Still Living Hx Family Cardiac Disorders: Yes (Triple bypass, CAD) Hx Family Respiratory Disorders: Yes (COPD, Asthma) Hx Family Endocrine Disorder: Yes (DM) Brother Race: Family Member Ethnicity: Non- Living Status: Still Living Hx Family Endocrine Disorder: Yes (DM) Sister Race: Family Member Ethnicity: Non- Living Status: Still Living Hx Family Cardiac Disorders: Yes (Heart murmur) Medications and Allergies Albuterol Sulfate [Albuterol Inhaler] 2 puff IH Q4HR #1 inhaler 07/22/18 [Rx] Loratadine [Claritin] 10 mg PO DAILY #14 capsule 07/22/18 [Rx] Esomeprazole Magnesium [Nexium] 20 mg PO DAILY 08/07/18 [History] 3 Allergy/AdvReac Type Severity Reaction Status Date / Time No Known Allergies Allergy Verified 08/06/18 14:45 ENT - ROS All systems PM: reviewed and no additional remarkable complaints except as stated (Chest pain, cough) - Constitutional Constitutional ROS: as per HPI - EENT Nose, mouth and throat: no abnormal hearing, no bleeding gums, no change in voice, no dental pain, no disequilibrium, no dizziness, no dry mouth, no dysphagia, no epistaxis, no facial pain, no halitosis, no headache(s), no hoarseness, no lip swelling, no mouth lesions, no mouth pain, no nasal congestion, no nasal discharge, no nasal obstruction, no nasal trauma, no neck mass, no neck pain, no nose pain, no odynophagia, no post-nasal drip, no sinus pain, no sinus pressure, no sore throat, no throat swelling, no tongue swelling , no vertigo - Cardiovascular Cardiovascular ROS IM: as per HPI, no chest pain, no chest pain at rest, no chest pain with activity, no dyspnea, no edema, no irregular heart rhythm, no radiating jaw, neck or arm pain, no lightheadedness, no orthopnea, no paroxysmal nocturnal dyspnea, no syncope - Respiratory as per HPI, no cough, no dyspnea, no hemoptysis, no dyspnea on exertion, no wheezing, no snoring, no stridor, no pain on inspiration, no chest congestion, no excessive phlegm production, no change in phlegm color, no pain with cough - Gastrointestinal Gastrointestinal: as per HPI, no coffee ground emesis, no constipation, no diarrhea, no dyspepsia, no dysphagia, no heartburn, no nausea, no odynophagia, no vomiting - Genitourinary Genitourinary ROS: as per HPI, no difficulty urinating, no dysuria, no urinary frequency, no urinary incontinence, no urinary urgency - Musculoskeletal Musculoskeletal ROS: as per HPI, no abnormal gait, no muscle weakness, no myalgias, no neck pain, no numbness, no stiffness, no tingling - Integumentary Integumentary: as per HPI, no acne, no bleeding lesions, no change in hair, no change in nails, no change in pigmentation, no changing lesions, no erythema, no furuncle, no lesions, no new lesions, no non-healing lesions, no pruritus, no rash, no skin ulcer, no sores - Neurological Neurological ROS: as per HPI, no abnormal gait, no abnormal hearing, no abnormal speech, no disequilibrium, no dizziness, no focal weakness, no frequent falls, no headache(s), no lack of coordination, no numbness, no paresthesias, no restless legs, no syncope, no tingling, no tremor(s), no vertigo, no weakness - Psychiatric Psychiatric general: as per HPI, no abnormal sleep pattern, no anxiety, no auditory hallucinations - Endocrine Endocrine: as per HPI, no cold intolerance, no deeping of the voice, no excessive sweating, no fatigue, no flushing, no heat intolerance, no palpitations, no polydipsia, no polyphagia, no polyuria - Hematologic/Lymphatic as per HPI, no easy bleeding, no easy bruising, no lymphadenopathy - Allergic/Immunologic as per HPI, no tongue swelling, no throat swelling, no itchy eyes, no seasonal rhinorrhea, no uticaria, no wheezing, no GI upset with certain foods, no lip swelling ENT Exam Initial Vital Signs Temp Pulse Resp BP Pulse Ox 97.8 F 107 22 146/83 97 08/06/18 14:44 08/06/18 14:44 08/06/18 14:44 08/06/18 14:44 08/06/18 14:44 - ENT Other (see additional findings) - Additional Findings Normocephalic, atraumatic Eyes: Pupils equal to light external motions intact Ears: Normal. And as bilaterally, normal external auditory canals bilaterally, right tympanic membrane is retracted with yellow serous otitis media filling the entire middle ear space. There is no evidence of purulence or bulging of the tympanic membrane. The left tympanic membrane is also mildly retracted with yellow serous otitis media filling the middle ear space. There is no purulence. Nares: Nasal dorsum normal, nasal ala and vestibule are normal bilaterally. There are nasal polyps filling the nasal cavity bilaterally. There is no purulence seen. The septum is fairly straight. The inferior turbinates are normal bilaterally. The patient's nasal airway is narrowed secondary to the nasal polyps. Oropharynx/oral cavity: The lips and gums are intact. The dentition is poor. The hard and soft palate are normal. The floor of mouth is normal with no mucosal lesions. The tongue is normal with no masses and no mucosal lesions. The tongue is mobile normally. The buccal mucosa is normal. The posterior pharynx is also normal no evidence of postnasal drainage. Neck: Supple with no lymphadenopathy. There are no masses palpable, the trachea is midline. There is no crepitance. Thyroid: There is no thyromegaly, no thyroid masses are palpable. Neuro: Cranial nerves II through XII are intact. Exam Initial Vital Signs Temp Pulse Resp BP Pulse Ox 97.8 F 107 22 146/83 97 08/06/18 14:44 08/06/18 14:44 08/06/18 14:44 08/06/18 14:44 08/06/18 14:44 Results - Labs 08/08/18 04:13 08/08/18 04:13 Abnormal lab results RBC 3.45 M/mcL (4.19-5.50) L 08/07/18 02:36 Hgb 10.6 g/dL (12.9-16.9) L 08/07/18 02:36 Hct 31.6 % (37.5-50.1) L 08/07/18 02:36 RDW 15.4 % (11.5-14.5) H 08/07/18 02:36 Plt Count 55 K/mcL (140-400) L 08/07/18 02:36 Reticulocyte # 0.02 M/mcL (0.05-0.10) L 08/06/18 17:47 Immature Gran % 4.1 % (0-4) H 08/07/18 02:36 Neutrophils # 0.4 K/mcL (1.6-8.9) L 08/07/18 02:36 Monocytes # 7.0 K/mcL (0.0-1.3) H 08/07/18 02:36 Nucleated RBCs/100 WBC 0.5 /100 WBC (0) H 08/07/18 02:36 Reactive Lymphocytes Present (Not Present) A 08/07/18 02:36 Platelet Estimate Decreased (Normal) L 08/07/18 02:36 Percent Retic 0.6 % (1.6-2.8) L 08/06/18 17:47 Retic Hgb Equivalent 36.7 pg (28.61-36.33) H 08/06/18 17:47 BUN 21 mg/dL (6-20) H 08/07/18 02:36 Glucose 169 mg/dL (70-105) H 08/07/18 02:36 Transferrin 155 mg/dL (203-362) L 08/06/18 17:47 Direct Bilirubin 0.4 mg/dL (0.0-0.2) H 08/06/18 17:47 AST 93 Units/L (13-39) H 08/07/18 02:36 ALT 138 Units/L (7-52) H 08/07/18 02:36 Lactate Dehydrogenase 2017 Units/L (140-271) H 08/06/18 17:47 Serum Total Protein 5.6 g/dL (6.4-8.9) L 08/07/18 02:36 Albumin 3.3 g/dL (3.5-5.7) L 08/07/18 02:36 Globulin 2.3 g/dL (2.4-3.5) L 08/07/18 02:36 HDL Cholesterol 26 mg/dL (40-59) L 08/07/18 02:36 Salicylates < 2.5 mg/dL (15.0-30.0) L 08/06/18 15:03 Entero/Rhino (PCR) DETECTED (Not Detect) A 08/06/18 20:45 Diabetes panel 08/06/18 08/06/18 08/07/18 Range/Units 17:47 22:31 02:36 Sodium 138 (136-145) mEq/L Potassium 4.2 D 4.2 (3.5-5.1) mEq/L Chloride 104 (98-107) mEq/L Carbon Dioxide 25 (23-29) mEq/L BUN 21 H (6-20) mg/dL Creatinine 1.05 (0.70-1.30) mg/dL Glucose 169 H (70-105) mg/dL Calcium 8.8 (8.6-10.3) mg/dL AST 85 H 93 H (13-39) Units/L ALT 148 H 138 H (7-52) Units/L Alkaline Phosphatase 93 89 (34-104) Units/L Albumin 3.4 L 3.3 L (3.5-5.7) g/dL Triglycerides 74 (< 150) mg/dL HDL Cholesterol 26 L (40-59) mg/dL Calcium panel 08/06/18 08/07/18 Range/Units 17:47 02:36 Calcium 8.8 (8.6-10.3) mg/dL Albumin 3.4 L 3.3 L (3.5-5.7) g/dL Pituitary panel 08/06/18 08/07/18 Range/Units 22:31 02:36 Sodium 138 (136-145) mEq/L Potassium 4.2 D 4.2 (3.5-5.1) mEq/L Chloride 104 (98-107) mEq/L Carbon Dioxide 25 (23-29) mEq/L BUN 21 H (6-20) mg/dL Creatinine 1.05 (0.70-1.30) mg/dL Glucose 169 H (70-105) mg/dL Calcium 8.8 (8.6-10.3) mg/dL Adrenal panel 08/06/18 08/06/18 08/07/18 Range/Units 17:47 22:31 02:36 Sodium 138 (136-145) mEq/L Potassium 4.2 D 4.2 (3.5-5.1) mEq/L Chloride 104 (98-107) mEq/L Carbon Dioxide 25 (23-29) mEq/L BUN 21 H (6-20) mg/dL Creatinine 1.05 (0.70-1.30) mg/dL Glucose 169 H (70-105) mg/dL Calcium 8.8 (8.6-10.3) mg/dL Total Bilirubin 0.8 0.5 (0.3-1.0) mg/dL AST 85 H 93 H (13-39) Units/L ALT 148 H 138 H (7-52) Units/L Alkaline Phosphatase 93 89 (34-104) Units/L Albumin 3.4 L 3.3 L (3.5-5.7) g/dL All other labs normal. Consult Discharge Plan - Plan Referrals: Noni Wells, [employer] [Primary Care Provider] - - Attending Attestation I personally have seen and examined this patient and spent 30 minutes on exam
[2018-08-07] MEDS: Ringers Solution, Lactated 1,000 ML IVC SCH (10:30)
[2018-08-07] MEDS: cefTRIAXone 2,000 MG in 0.9 % Sodium Chloride Mini Bag 100 ML IVPB SCH (10:31)
[2018-08-07] MEDS: Aspirin Enteric Coated 81 MG Tablet PO SCH (10:33)
--- NOTE | 2018-08-07 11:24 | Oncology Inp Consult Note ---
Date of Encounter: 08/07/18 Time of Encounter: 09:45 Assessment and Plan (1) Rhinovirus infection Status: Acute Assessment and plan: Clinically, this gentleman is likely recovering from a rhinovirus infection. I think this may be the cause of some his upper respirator tract infection symptoms. I do not think this is the cause of his low platelets or neutropenia. Continue supportive measures. (2) Neutropenia Status: Acute Assessment and plan: This gentleman has neutropenia with a significant monocytosis and thrombocytopenia. CT imaging with mild splenomegaly. This constellation of findings may be secondary to an underlying viral infection or underlying bone marrow conditions such as leukemia. Agree with workup that has been performed thus far. I have added a CMV PCR as well. In addition to his infectious disease evaluation, I have obtained a BCR able to look for allowing CML. Peripheral blood flow cytometry has been obtained to look for hairy cell leukemia. I will also order a CT-guided bone marrow aspirate and biopsy to be performed tomorrow. LDH has been repeated for tomorrow morning as well. Despite his elevated LDH, he has no evidence of underlying hemolysis with a normal bilirubin. I do not think this is TTP/HUS given lack of other constitutional symptoms and absence of hemolysis. I would consider broadening antimicrobial coverage to include cefepime instead of ceftriaxone for pseudomonal coverage given his neutropenia and infectious symptoms. I did discuss this with the patient and his today. We will continue to follow along quite closely. Please do not hesitate to call with any concerns or questions. Qualifiers: Neutropenia type: unspecified Qualified Code(s): D70.9 - Neutropenia, unspecified (3) Thrombocytopenia Status: Acute Assessment and plan: Platelet count is adequate for bone marrow aspirate and biopsy. Please see above for further details of evaluation - Data of Consult Requesting Physician: Celio Galindo Primary Care Provider: Noni Wells CNP - Consult Narrative Reason for consult: Cytopenias History of present illness: Mr. Manzo is a 47 year old male with malignant medication about 5 weeks ago. Shortly after returning from his vacation, he developed right-sided hearing loss. This is followed by coughing, shortness of breath and significant fatigue. 4 weeks ago, he is placed on a course of antibiotics, prednisone and an inhaler. Symptoms did not respond to this new to the emergency department 2 weeks Y his steroids were increased and he is given another course of antibiotics. Yesterday, his fatigue worsening started to develop chest discomfort in the middle of his chest. He has not had any weight loss through this process. He has had drenching night sweats for the past week. No fever or chills. He denies any headache, blurred or double vision. He has had some dizziness. No skin rash, petechiae or purpura. No recent bug bite or exposure. No other sick contacts and the household outside his who had bronchitis. This prompted him to present to the emergency department were CT of the chest was obtained and revealed Bilateral lower lobe atelectasis and parenchymal scar without acute airspace consolidation. Multiple scattered nonspecific subcentimeter noncalcified nodules throughout both lungs, most likely reflecting benign granulomata. New nonspecific [id number] splenomegaly. Although the white count was normal, he had significant neutropenia with an ANC of 200. He also had thrombocytopenia with a platelet count of 51,000. LDH was markedly elevated at over 2000. Haptoglobin is currently pending. Total bilirubin was normal at 0.5. Monospot was negative. Rhinovirus PCR was positive. Urine and blood cultures are negative to date. He has been placed on Rocephin. He is also being assessed for other viral or bacterial etiologies. Infectious disease has been consulted. ENT was consult it. He is found to have serous otitis media and recommendations were made. Past Med Surg Social Fam HX - Past Medical History Medical history: no medical history, GERD Psychiatric history: no psych history - Past Surgical History Additional surgical history: chicken bone removal- - Social History Smoking Status: Heavy tobacco smoker Packs per day: 2 Smokeless Tobacco Status: No Alcohol use: occasionally Drug use: none - Family History Father Race: Family Member Ethnicity: Non- Living Status: Age at : 50 Cause of : Thyroid cancer Hx Family Cancer: Yes (Thyroid) Mother Race: Family Member Ethnicity: Non- Living Status: Still Living Hx Family Cardiac Disorders: Yes (Triple bypass, CAD) Hx Family Respiratory Disorders: Yes (COPD, Asthma) Hx Family Endocrine Disorder: Yes (DM) Brother Race: Family Member Ethnicity: Non- Living Status: Still Living Hx Family Endocrine Disorder: Yes (DM) Sister Race: Family Member Ethnicity: Non- Living Status: Still Living Hx Family Cardiac Disorders: Yes (Heart murmur) Medications and Allergies Albuterol Sulfate [Albuterol Inhaler] 2 puff IH Q4HR #1 inhaler 07/22/18 [Rx] Loratadine [Claritin] 10 mg PO DAILY #14 capsule 07/22/18 [Rx] 3 Allergy/AdvReac Type Severity Reaction Status Date / Time No Known Allergies Allergy Verified 08/06/18 14:45 All systems: reviewed and no additional remarkable complaints except as stated Constitutional: Present: lethargy, night sweats, weakness Eyes: Present: change in vision Ears: Present: decreased hearing, ear pain Nose, mouth and throat: Present: as per HPI Cardiovascular: Present: chest pain Respiratory: Present: dyspnea on exertion Gastrointestinal: Present: as per HPI Genitourinary: as per HPI Musculoskeletal: Present: as per HPI Integumentary: Present: as per HPI Oncology - Exam - Constitutional Vitals: Temp Pulse Resp BP Pulse Ox 97.8 F 90 18 132/90 91 08/07/18 10:53 08/07/18 10:53 08/07/18 10:53 08/07/18 10:53 08/07/18 10:53 General appearance: average body habitus, cooperative, no acute distress - Head Head exam: Present: atraumatic, normal inspection, normocephalic - Eye Eye exam: Present: normal appearance, conjuntiva pink, sclera anicteric - Expanded ENT Exam Teeth exam: Present: dental caries - Neck Neck exam: Present: full ROM, normal inspection - Respiratory Respiratory exam: Present: CTAB - Cardiovascular Cardiovascular exam: Present: RRR - GI/Abdominal GI/Abdominal exam: Present: normal bowel sounds, soft - Extremities Exam Extremities exam: Present: normal capillary refill, normal inspection - Back Exam Back exam: Present: normal inspection - Skin Skin exam: Present: normal color Oncology - Results Labs: 3 08/07/18 08/07/18 08/07/18 02:36 02:36 02:36 WBC 10.2 D RBC 3.45 L Hgb 10.6 L Hct 31.6 L MCV 91.6 MCH 30.7 MCHC 33.5 RDW 15.4 H Plt Count 55 L MPV 9.8 Reticulocyte # Immature Gran % 4.1 H Seg Neutrophils % 3.4 Lymphocytes % 23.1 Monocytes % 68.9 Eosinophils % 0.2 Basophils % 0.3 Neutrophils # 0.4 L Lymphocytes # 2.4 Monocytes # 7.0 H Eosinophils # 0.0 Basophils # 0.0 Nucleated RBCs/100 WBC 0.5 H Reactive Lymphocytes Present A Platelet Estimate Decreased L Immature Plt Fraction 3.1 Smear Path Review Percent Retic Immature Retic Fraction Retic Hgb Equivalent Sodium 138 Potassium 4.2 Chloride 104 Carbon Dioxide 25 BUN 21 H Creatinine 1.05 Est GFR ( Amer) > 60 Est GFR (Non-Af Amer) > 60 BUN/Creatinine Ratio 20 Glucose 169 H Calculated Osmolality 293 Calcium 8.8 Magnesium 2.1 Iron % Saturation Transferrin Total Bilirubin 0.5 Direct Bilirubin Indirect Bilirubin AST 93 H ALT 138 H Alkaline Phosphatase 89 Lactate Dehydrogenase Troponin I < 0.03 Serum Total Protein 5.6 L Albumin 3.3 L Globulin 2.3 L Albumin/Globulin Ratio 1.4 Triglycerides 74 Cholesterol 89 LDL Cholesterol, Calc 48 VLDL Cholesterol, Calc 15 HDL Cholesterol 26 L Cholesterol/HDL Ratio 3.4 Vitamin B12 Chlamy pneumoniae PCR Adenovirus (PCR) B. pertussis DNA (PCR) B.parapertussis DNA PCR Coronavirus OC43 (PCR) Coronavirus HKU1 (PCR) Coronavirus 229E (PCR) Coronavirus NL63 (PCR) Human Metapneumovir PCR Infectious [place] Assay Influenza A (H1) PCR Influ A (H1N1/09) PCR Influenza A (H3) PCR Influenza A Untype (PCR) Influenza Type B (PCR) M.pneumoniae DNA (PCR) Parainfluenza 1 (PCR) Parainfluenza 2 (PCR) Parainfluenza 3 (PCR) Parainfluenza 4 (PCR) RSV (PCR) Entero/Rhino (PCR) 3 08/06/18 08/06/18 08/06/18 22:31 20:48 20:45 WBC RBC Hgb Hct MCV MCH MCHC RDW Plt Count MPV Reticulocyte # Immature Gran % Seg Neutrophils % Lymphocytes % Monocytes % Eosinophils % Basophils % Neutrophils # Lymphocytes # Monocytes # Eosinophils # Basophils # Nucleated RBCs/100 WBC Reactive Lymphocytes Platelet Estimate Immature Plt Fraction Smear Path Review See Below Percent Retic Immature Retic Fraction Retic Hgb Equivalent Sodium Potassium 4.2 D Chloride Carbon Dioxide BUN Creatinine Est GFR ( Amer) Est GFR (Non-Af Amer) BUN/Creatinine Ratio Glucose Calculated Osmolality Calcium Magnesium Iron % Saturation Transferrin Total Bilirubin Direct Bilirubin Indirect Bilirubin AST ALT Alkaline Phosphatase Lactate Dehydrogenase Troponin I < 0.03 Serum Total Protein Albumin Globulin Albumin/Globulin Ratio Triglycerides Cholesterol LDL Cholesterol, Calc VLDL Cholesterol, Calc HDL Cholesterol Cholesterol/HDL Ratio Vitamin B12 Chlamy pneumoniae PCR Adenovirus (PCR) B. pertussis DNA (PCR) B.parapertussis DNA PCR Coronavirus OC43 (PCR) Coronavirus HKU1 (PCR) Coronavirus 229E (PCR) Coronavirus NL63 (PCR) Human Metapneumovir PCR Infectious [place] Assay Influenza A (H1) PCR Influ A (H1N1) PCR Influenza A (H3) PCR Influenza A Untype (PCR) Influenza Type B (PCR) M.pneumoniae DNA (PCR) Parainfluenza 1 (PCR) Parainfluenza 2 (PCR) Parainfluenza 3 (PCR) Parainfluenza 4 (PCR) RSV (PCR) Entero/Rhino (PCR) 3 08/06/18 08/06/18 08/06/18 20:45 17:47 17:47 WBC RBC Hgb Hct MCV MCH MCHC RDW Plt Count MPV Reticulocyte # Immature Gran % Seg Neutrophils % Lymphocytes % Monocytes % Eosinophils % Basophils % Neutrophils # Lymphocytes # Monocytes # Eosinophils # Basophils # Nucleated RBCs/100 WBC Reactive Lymphocytes Platelet Estimate Immature Plt Fraction Smear Path Review Percent Retic Immature Retic Fraction Retic Hgb Equivalent Sodium Potassium Chloride Carbon Dioxide BUN Creatinine Est GFR ( Amer) Est GFR (Non-Af Amer) BUN/Creatinine Ratio Glucose Calculated Osmolality Calcium Magnesium Iron 82 % Saturation 38 Transferrin 155 L Total Bilirubin 0.8 Direct Bilirubin 0.4 H Indirect Bilirubin 0.4 AST 85 H ALT 148 H Alkaline Phosphatase 93 Lactate Dehydrogenase Troponin I Serum Total Protein 5.6 L Albumin 3.4 L Globulin 2.2 L Albumin/Globulin Ratio 1.5 Triglycerides Cholesterol LDL Cholesterol, Calc VLDL Cholesterol, Calc HDL Cholesterol Cholesterol/HDL Ratio Vitamin B12 Chlamy pneumoniae PCR Not Detected Adenovirus (PCR) Not Detected B. pertussis DNA (PCR) Not Detected B.parapertussis DNA PCR Not Detected Coronavirus OC43 (PCR) Not Detected Coronavirus HKU1 (PCR) Not Detected Coronavirus 229E (PCR) Not Detected Coronavirus NL63 (PCR) Not Detected Human Metapneumovir PCR Not Detected Infectious [place] Assay Negative Influenza A (H1) PCR Not Detected Influ A (H1N1/09) PCR Not Detected Influenza A (H3) PCR Not Detected Influenza A Untype (PCR) Not Detected Influenza Type B (PCR) Not Detected M.pneumoniae DNA (PCR) Not Detected Parainfluenza 1 (PCR) Not Detected Parainfluenza 2 (PCR) Not Detected Parainfluenza 3 (PCR) Not Detected Parainfluenza 4 (PCR) Not Detected RSV (PCR) Not Detected Entero/Rhino (PCR) DETECTED A 3 08/06/18 08/06/18 08/06/18 17:47 17:47 17:47 WBC RBC Hgb Hct MCV MCH MCHC RDW Plt Count MPV Reticulocyte # 0.02 L Immature Gran % Seg Neutrophils % Lymphocytes % Monocytes % Eosinophils % Basophils % Neutrophils # Lymphocytes # Monocytes # Eosinophils # Basophils # Nucleated RBCs/100 WBC Reactive Lymphocytes Platelet Estimate Immature Plt Fraction Smear Path Review Percent Retic 0.6 L Immature Retic Fraction 17.6 Retic Hgb Equivalent 36.7 H Sodium Potassium Chloride Carbon Dioxide BUN Creatinine Est GFR ( Amer) Est GFR (Non-Af Amer) BUN/Creatinine Ratio Glucose Calculated Osmolality Calcium Magnesium Iron % Saturation Transferrin Total Bilirubin Direct Bilirubin Indirect Bilirubin AST ALT Alkaline Phosphatase Lactate Dehydrogenase 2017 H Troponin I Serum Total Protein Albumin Globulin Albumin/Globulin Ratio Triglycerides Cholesterol LDL Cholesterol, Calc VLDL Cholesterol, Calc HDL Cholesterol Cholesterol/HDL Ratio Vitamin B12 998 Chlamy pneumoniae PCR Adenovirus (PCR) B. pertussis DNA (PCR) B.parapertussis DNA PCR Coronavirus OC43 (PCR) Coronavirus HKU1 (PCR) Coronavirus 229E (PCR) Coronavirus NL63 (PCR) Human Metapneumovir PCR Infectious [place] Assay Influenza A (H1) PCR Influ A (H1N1/09) PCR Influenza A (H3) PCR Influenza A Untype (PCR) Influenza Type B (PCR) M.pneumoniae DNA (PCR) Parainfluenza 1 (PCR) Parainfluenza 2 (PCR) Parainfluenza 3 (PCR) Parainfluenza 4 (PCR) RSV (PCR) Entero/Rhino (PCR) CT OF THE CHEST WITHOUT CONTRAST 08/06/2018 4:25 pm FINDINGS: Mediastinum: The visualized thyroid is unremarkable. There is no pathologically enlarged lymphadenopathy within the chest or mediastinum. Calcified mediastinal lymph nodes are noted. The intrathoracic aorta is unremarkable without evidence of aneurysm. No pericardial abnormality is identified. Lungs/pleura: The central airways are patent. There is a background of mild emphysema. There are curvilinear bands of opacity within the bilateral lower lobes with additional ground-glass opacity evident. This likely reflects a combination of atelectasis and parenchymal scar. No localized focus of acute airspace consolidation is identified to suggest pneumonia. There is no evidence of a pneumothorax or pleural effusion. Scattered calcified granulomata are noted. There are multiple scattered subcentimeter noncalcified nodules also noted throughout both lungs, the largest measuring 7 mm within the subpleural portion of the superior segment of the left lower lobe. One of these nodules could conceivably represent the nodules as seen on prior chest x-ray. No dominant pulmonary mass is evident. Upper Abdomen: The visualized adrenal glands are unremarkable. There is [id number] splenomegaly, new from prior exam, nonspecific. There are a few stable low-density lesions within the liver parenchyma, the largest measuring approximately 1.2 cm within the left hepatic lobe, similar to the prior study, and likely representing benign cysts. Soft Tissues/Bones: There is degenerative change throughout the visualized thoracolumbar spine. No osteolytic or osteoblastic lesion is seen. CT/CT chest wo con IMPRESSION: 1. Bilateral lower lobe atelectasis and parenchymal scar without acute airspace consolidation. 2. Mild emphysema. 3. Multiple scattered nonspecific subcentimeter noncalcified nodules throughout both lungs, most likely reflecting benign granulomata. One of these nodules likely represents the previously identified chest x-ray opacity. While likely benign, suggest continued CT follow-up of these nodules, as advised below. 4. New nonspecific [id number] splenomegaly, of questionable clinical significance. Consult Discharge Plan - Plan Referrals: Noni Wells CNP [Primary Care Provider] - Inpatient Charges Provider: Dr. Divya Joshua Consult Charges: 28820
[2018-08-07] MEDS: Ketorolac 30 MG/ML VIAL IVP PRN ×3 (13:55→22:32)
--- NOTE | 2018-08-07 19:46 | Internal Med Progress Note ---
Hospitalist Progress Note - Encounter Date of Encounter: 08/07/18 Time of Encounter: 11:00 - Subjective Interval History: Patient this morning still with chest pressure in addition to generalized weakness. Cardiac biomarkers are negative and echocardiogram/nuclear medicine stress test pending Hematology and infectious disease following with workup in progress - Exam Vitals: Temp Pulse Resp BP Pulse Ox 98.8 F 91 17 108/67 92 08/07/18 19:26 08/07/18 19:26 08/07/18 19:26 08/07/18 19:26 08/07/18 19:26 Exam: Gen.: Nonacute distress, alert and oriented 3 ENT: Mucosal membranes moist Respiratory: Lungs are clear to auscultation bilaterally without any wheezing rhonchi or rales Cardiovascular: Normal S1 and S2 regular rate rhythm no murmurs rubs or gallops Abdomen: Soft, nontender and nondistended with positive bowel sounds Extremities: No lower extremity edema Skin: Normal color - Assessment and Plan (1) Sepsis Current Visit: Yes Status: Acute Assessment and Plan: On admission Acute sepsis criteria w/HR of 107 and RR of 22. Bilateral otitis media present for the past 4 weeks w/failed OP therapy x2. Pt. also reports swimming in [facility] 6 weeks ago and feeling weak/sick for the past 4 weeks. Blood cultures x2 ordered. Respiratory infection panel d/t recent PNA and flu- like sx. EBV and Monotest. Lyme antibody. LR IVC @ 75 mLs/HR. Lactic 1.3. IVPB Rocephin 2,000 mg daily for infection coverage of resistant otitis media. Will adjust abx coverage based on culture and panel results if warranted. ID following (2) Weakness generalized Current Visit: Yes Status: Acute Assessment and Plan: Acute on chronic generalized weakness for the past 4 weeks. Pt. reports swimming in [facility] several times during vacation 6 weeks ago and feeling sick for the past 4 weeks. ID consult and appreciate recommendations (3) Chest pain Current Visit: Yes Status: Acute Assessment and Plan: Cardiac Biomarkers are negative Cardiogram and nuclear medicine stress test pending Continue to monitor on telemetry (4) Splenomegaly Current Visit: Yes Status: Acute Assessment and Plan: Acute splenomegaly on imaging of unknown etiology. EBV and Monotests ordered. Platelets 51. HemeOnc following and workup in progress (5) Thrombocytopenia Current Visit: Yes Status: Acute Assessment and Plan: Acute thrombocytopenia w/platelets of 51 on admission. Unknown etiology. Hematology following as above (6) Anemia Current Visit: Yes Status: Acute Assessment and Plan: Acute anemia of unknown etiology. Hematology following as above (7) Hypokalemia Current Visit: Yes Status: Acute Assessment and Plan: Resolved; continue to monitor (8) Otitis media, chronic, bilateral Current Visit: Yes Status: Chronic Assessment and Plan: ENT consulted and appreciate recommendations (9) DVT prophylaxis Current Visit: Yes Status: Acute Assessment and Plan: Bilateral SCDs on LEs for DVT prophylaxis d/t current thrombocytopenia. - Time Spent with Patient Total time spent is greater than 50% in coordination of care (as documented) at patient's floor/unit and/or counseling patient: Internal Medicine: Result - Labs CBC & Chem 7: 08/07/18 02:36 08/07/18 02:36 Labs: Short CBC 08/07/18 Range/Units 02:36 WBC 10.2 D (4.3-11.1) K/mcL Hgb 10.6 L (12.9-16.9) g/dL Hct 31.6 L (37.5-50.1) % Plt Count 55 L (140-400) K/mcL Neutrophils # 0.4 L (1.6-8.9) K/mcL BMP 08/06/18 08/07/18 22:31 02:36 Sodium 138 Potassium 4.2 D 4.2 Chloride 104 Carbon Dioxide 25 BUN 21 H Creatinine 1.05 Glucose 169 H Calcium 8.8 Cardiac Enzymes 08/06/18 08/07/18 Range/Units 20:48 02:36 Troponin I < 0.03 < 0.03 (< 0.04) ng/mL Liver Function 08/07/18 Range/Units 02:36 Total Bilirubin 0.5 (0.3-1.0) mg/dL AST 93 H (13-39) Units/L ALT 138 H (7-52) Units/L Alkaline Phosphatase 89 (34-104) Units/L Albumin 3.3 L (3.5-5.7) g/dL - Impressions Impressions Echocardiogram 08/07/18 07:00 Impressions: LVEF 65%. Normal LV chamber size, wall thickness and function. Normal right ventricular structure and function. No significant valvular dysfunction. Unable to estimate RVSP due to lack of TR jet. Left Ventricular Wall Motion: Rest Echo Findings All wall segments showed normal motion. Findings: Study Quality * Technically adequate exam. ECG Findings * Normal sinus rhythm. Left Ventricle * LVEF 65%. * Normal LV chamber size, wall thickness and function. * Normal left ventricular diastolic function. Right Ventricle * Normal right ventricular structure and function. Left Atrium * Normal left atrial size. Right Atrium * Normal right atrial size. Interatrial Septum * Interatrial septum not well evaluated. Aortic Valve * Trileaflet aortic valve. * Trileaflet aortic valve with normal function. * No aortic regurgitation. * No aortic stenosis. Mitral Valve * Normal mitral valve structure and function. * Trace mitral regurgitation. Tricuspid Valve * Normal tricuspid valve structure and function. * No tricuspid regurgitation. * Estimated RA pressure is 5 mmHg. * Unable to estimate RVSP due to lack of TR jet. Pulmonic Valve * Pulmonic valve not well visualized. * Trace pulmonic regurgitation. Aorta * Normally sized aortic root. Pericardium * The pericardium appears normal. IVC * Normal IVC dimensions and inspiratory collapse. Consult Discharge Plan - Plan Referrals: Noni Wells, [employer] [Primary Care Provider] - (1) Sepsis Qualifiers: Sepsis type: sepsis due to unspecified organism Qualified Code(s): A41.9 - Sepsis, unspecified organism (3) Chest pain Qualifiers: Ischemic chest pain type: unspecified angina pectoris type (6) Anemia Qualifiers: Anemia type: unspecified type Qualified Code(s): D64.9 - Anemia, unspecified
[2018-08-07] MEDS: Loratadine/Pseudophed (12 HR) 1 EACH TABLET PO SCH (20:48)
[2018-08-07] MEDS: Fluticasone Propionate Nasal 50 MCG/SPRAY BOTTLE NS SCH (20:49)
[2018-08-08] MEDS: Ringers Solution, Lactated 1,000 ML IVC SCH ×2 (02:25→16:05)
[2018-08-08] MEDS: Ketorolac 30 MG/ML VIAL IVP PRN ×4 (02:36→16:40)
[2018-08-08] MEDS ORDERED: Regadenoson 0.4 MG/5 ML SYRINGE IVP ONE (06:12)
[2018-08-08 06:14] LABS: Hemoglobin 10.1 g/dL (12.9-16.9)
[2018-08-08 06:16] LABS: Hematocrit 30.5 % (37.5-50.1); Immature Platelets 4.6 % (1.1-6.1); Mean Corpuscular HGB Conc 33.1 g/dL (31.6-35.5); Mean Corpuscular Hemoglobin 30.3 pg (28.0-33.3); Mean Corpuscular Volume 91.6 fL (83.0-100.0); Mean Platelet Volume 10.3 fL (9.4-12.4); Nucleated Red Blood Cells 0.3 /100 WBC (0); Red Blood Count 3.33 M/mcL (4.19-5.50); Red Cell Distribution Width 15.7 % (11.5-14.5)
[2018-08-08 06:22] LABS: Platelet Count 45 K/mcL (140-400)
[2018-08-08 06:37] LABS: Alanine Aminotransferase 124 Units/L (7-52); Albumin 3.2 g/dL (3.5-5.7); Albumin/Globulin Ratio 1.5 (1.1-2.2); Alkaline Phosphatase 91 Units/L (34-104); Aspartate Amino Transferase 92 Units/L (13-39); BUN/Creatinine Ratio 22 (6-26); Bilirubin,Total 0.7 mg/dL (0.3-1.0); Blood Urea Nitrogen 28 mg/dL (6-20); Calcium 8.8 mg/dL (8.6-10.3); Carbon Dioxide 26 mEq/L (23-29); Chloride 100 mEq/L (98-107); Globulin 2.2 g/dL (2.4-3.5); Glucose 96 mg/dL (70-105); Osmolality,Calculated 281 (280-300); Potassium 3.8 mEq/L (3.5-5.1); Sodium 133 mEq/L (136-145); Total Protein 5.4 g/dL (6.4-8.9); eGFR For Non-African Americans 60 (> 60)
[2018-08-08] MEDS: cefTRIAXone 2,000 MG in 0.9 % Sodium Chloride Mini Bag 100 ML IVPB SCH (08:12)
[2018-08-08] MEDS: Fluticasone Propionate Nasal 50 MCG/SPRAY BOTTLE NS SCH (08:13)
[2018-08-08 09:01] LABS: INR 1.4; Prothrombin Time 15.6 Seconds (9.4-12.1)
[2018-08-08] MEDS ORDERED: *HR* Midazolam HCl 2 MG/2 ML VIAL IVP ONE (09:44)
[2018-08-08] MEDS ORDERED: *HR* FentaNYL (PF) 100 MCG/2 ML VIAL IVP ONE (09:45)
--- NOTE | 2018-08-08 09:46 | Pre-Sedation Evaluation ---
Pre-sedation evaluation - Pre-sedation checklist Date of procedure: 08/08/18 Procedure: bone marrow biopsy Recent Vitals: Last Vital Signs Temp 99.6 F 08/08/18 07:11 Pulse 105 08/08/18 07:11 Resp 17 08/08/18 07:11 BP 142/96 08/08/18 07:11 Pulse Ox 95 08/08/18 07:11 H&P (including ROS) documented in medical record: Yes Previous reaction to sedatives/anesthetics: No Dietary Status: NPO after Midnight ASA Classification *see protocol: CLASS II-Mild systemic disease Plan of Care: Pt appropriate candidate for procedure/moderate/conscious sedation , Risks/benefits of procedure/sedation discussed w/ patient/family Cardiac Registry (Cardio Only) - Functional Capacity - Clincal Frailty Scale
[2018-08-08] MEDS ORDERED: *HR* Midazolam HCl 2 MG/2 ML VIAL ONE (09:50)
--- NOTE | 2018-08-08 10:01 | IR Procedure Note ---
Date of procedure: 08/08/18 Consent Obtained: Written consent Timeout: Correct patient and procedure verified, Time out performed, Skin prep completed Local anesthetic: Lidocaine 1% Indications: Neutropenia Procedure Performed: Bone marrow asp/biopsy Was there an bookkeeper assistant present: No Estimated blood loss (cc): 0 Complications: None; Tolerated procedure well Post Procedure Treatment Plan: Monitor on floor Specimen: To path
[2018-08-08 10:18] LABS: Estimated Average Glucose 154 mg/dl
--- NOTE | 2018-08-08 10:49 | Oncology Inp Progress Note ---
<Alfonso Reeder - Last Filed: 08/08/18 18:24> Date of Encounter: 08/08/18 Time of Encounter: 10:25 (1) Neutropenia Status: Acute Assessment and plan: This gentleman has neutropenia with a significant monocytosis and thrombocytopenia. CT imaging with mild splenomegaly. This constellation of findings may be secondary to an underlying viral infection or underlying bone marrow conditions such as leukemia. CT-guided bone marrow aspirate and biopsy completed this AM. LDH decreased from 2016 to 1999. WBC increased from 10.2K to 19.1K. Plt ct decreased from 55K to 45K. Agree with workup that has been performed thus far. Despite his elevated LDH, he has no evidence of underlying hemolysis with a normal bilirubin. I do not think this is TTP/HUS given lack of other constitutional symptoms and absence of hemolysis. Would still consider broadening antimicrobial coverage to include cefepime instead of ceftriaxone for pseudomonal coverage given his neutropenia and infectious symptoms. Especially with elevation in WBC today and patient's tachycardia and elevation in temp. Pending CMV PCR; BCR able to look for CML; Peripheral blood flow cytometry for hairy cell leukemia. Update (18:00): Call from lab this morning with blasts on peripheral blood smear , concern for AML. Plan to transfer patient to [facility] for further evaluation and treatment. Patient has been accepted, but pending bed assignment. Patient and aware of possible diagnosis. Should have some information from bone marrow biopsy tomorrow. Qualifiers: Neutropenia type: unspecified Qualified Code(s): D70.9 - Neutropenia, unspecified (2) Thrombocytopenia Status: Acute Assessment and plan: Plt count decreased today to 45K. Please see above for further details of evaluation (3) Rhinovirus infection Status: Acute Assessment and plan: I do not think this is the cause of his low platelets or neutropenia. Continue supportive measures. Oncology: Subj Interval history: Patient seen and evaluated sitting in bedside chair. States he is feeling better compared to initial presentation, but notes fatigue, sweating, and constipation. Denies CP, dyspnea, abdominal pain, nausea, vomiting. Patient does note an appetite today. Patient completed liver biopsy this a.m., stress test was rescheduled for tomorrow due to tachycardia. Patient's white blood cell count increased from 10 ,200 to 19,100; with Tmax of 99.6. Today is and Mrs. Manzo's anniversary. - Constitutional Vitals: Vital Signs Temp Pulse Resp BP Pulse Ox 08/08/18 09:55 92 129/87 98 08/08/18 09:47 96 124/85 97 08/08/18 08:27 97 08/08/18 07:11 99.6 F 105 17 142/96 95 08/08/18 03:46 99.5 F 106 16 127/83 94 08/07/18 22:56 98.3 F 101 17 121/82 91 08/07/18 19:26 98.8 F 91 17 108/67 92 08/07/18 15:31 97.8 F 92 19 115/73 94 08/07/18 10:53 97.8 F 90 18 132/90 91 Intake and Output 08/07/18 08/08/18 08/08/18 23:59 07:59 15:59 Intake Total 3180 / 3180 100 / 100 Output Total 50 / 50 650 / 650 Balance 3130 / 3130 -650 / -650 100 / 100 Intake: IV Fluids 2000 / 2000 100 / 100 Lactated Ringers 1,000 ML @ 75 1000 / 1000 mls/hr IVC .[id number] [facility] Rx#: [id number] Rocephin 2,000 MG In 0.9 % 100 / 100 Sodium Chloride (Mini-Bag +) 100 ML @ 200 mls/hr IVPB DAILY [facility] Rx#:[id number] Oral 480 / 480 Free Water 700 / 700 Output: Urine 50 / 50 650 / 650 Other: Meal Dinner Percent of Meal Consumed 10% Weight 90.2 kg Blood Glucose* 87 Patient Weight 08/08/18 23:59 Weight 90.2 kg General appearance: average body habitus, cooperative, no acute distress - Head Head exam: Present: atraumatic, normocephalic - Eye Eye exam: Present: normal appearance. Absent: conjunctival injection - ENT ENT exam: Present: mucous membranes moist - Neck Neck exam: Present: full ROM - Respiratory Respiratory exam: Present: CTAB. Absent: accessory muscle use, respiratory distress, wheezes - Cardiovascular Cardiovascular exam: Present: +S1, +S2. Absent: diastolic murmur, irregular rhythm, systolic murmur - GI/Abdominal GI/Abdominal exam: Present: normal bowel sounds, soft. Absent: rebound, rigid, tenderness - Extremities Exam Extremities exam: Absent: pedal edema, tenderness - Neurological Exam Neurological exam: Present: alert, oriented X3 - Psychiatric Psychiatric exam: Present: normal affect, normal mood - Skin Skin exam: Present: dry, intact, normal color Oncology: Obj Data - Labs CBC & Chem 7: 08/08/18 04:13 08/08/18 04:13 Labs: Laboratory Results - last 24 hr 08/07/18 08/07/18 08/08/18 02:36 20:30 04:13 WBC 19.1 H D RBC 3.33 L Hgb 10.1 L Hct 30.5 L MCV 91.6 MCH 30.3 MCHC 33.1 RDW 15.7 H Plt Count 45 L MPV 10.3 Nucleated RBCs/100 WBC 0.3 H Immature Plt Fraction 4.6 PT INR Sodium Potassium Chloride Carbon Dioxide BUN Creatinine Est GFR ( Amer) Est GFR (Non-Af Amer) BUN/Creatinine Ratio Glucose POC Glucose 87 Est Mean Plasma Glucose 154 Hemoglobin A1c 7.0 H Calculated Osmolality Calcium Ferritin Total Bilirubin AST ALT Alkaline Phosphatase Lactate Dehydrogenase Serum Total Protein Albumin Globulin Albumin/Globulin Ratio 08/08/18 08/08/18 08/08/18 04:13 04:13 04:13 WBC RBC Hgb Hct MCV MCH MCHC RDW Plt Count MPV Nucleated RBCs/100 WBC Immature Plt Fraction PT INR Sodium 133 L Potassium 3.8 Chloride 100 Carbon Dioxide 26 BUN 28 H Creatinine 1.28 Est GFR ( Amer) > 60 Est GFR (Non-Af Amer) 60 BUN/Creatinine Ratio 22 Glucose 96 POC Glucose Est Mean Plasma Glucose Hemoglobin A1c Calculated Osmolality 281 Calcium 8.8 Ferritin > 1500 H Total Bilirubin 0.7 AST 92 H ALT 124 H Alkaline Phosphatase 91 Lactate Dehydrogenase 2000 H Serum Total Protein 5.4 L Albumin 3.2 L Globulin 2.2 L Albumin/Globulin Ratio 1.5 08/08/18 08:45 WBC RBC Hgb Hct MCV MCH MCHC RDW Plt Count MPV Nucleated RBCs/100 WBC Immature Plt Fraction PT 15.6 H INR 1.4 Sodium Potassium Chloride Carbon Dioxide BUN Creatinine Est GFR ( Amer) Est GFR (Non-Af Amer) BUN/Creatinine Ratio Glucose POC Glucose Est Mean Plasma Glucose Hemoglobin A1c Calculated Osmolality Calcium Ferritin Total Bilirubin AST ALT Alkaline Phosphatase Lactate Dehydrogenase Serum Total Protein Albumin Globulin Albumin/Globulin Ratio - Impressions Impressions Echocardiogram 08/07/18 07:00 Impressions: LVEF 65%. Normal LV chamber size, wall thickness and function. Normal right ventricular structure and function. No significant valvular dysfunction. Unable to estimate RVSP due to lack of TR jet. Left Ventricular Wall Motion: Rest Echo Findings All wall segments showed normal motion. Findings: Study Quality * Technically adequate exam. ECG Findings * Normal sinus rhythm. Left Ventricle * LVEF 65%. * Normal LV chamber size, wall thickness and function. * Normal left ventricular diastolic function. Right Ventricle * Normal right ventricular structure and function. Left Atrium * Normal left atrial size. Right Atrium * Normal right atrial size. Interatrial Septum * Interatrial septum not well evaluated. Aortic Valve * Trileaflet aortic valve. * Trileaflet aortic valve with normal function. * No aortic regurgitation. * No aortic stenosis. Mitral Valve * Normal mitral valve structure and function. * Trace mitral regurgitation. Tricuspid Valve * Normal tricuspid valve structure and function. * No tricuspid regurgitation. * Estimated RA pressure is 5 mmHg. * Unable to estimate RVSP due to lack of TR jet. Pulmonic Valve * Pulmonic valve not well visualized. * Trace pulmonic regurgitation. Aorta * Normally sized aortic root. Pericardium * The pericardium appears normal. IVC * Normal IVC dimensions and inspiratory collapse. - ABG Interpretation ABG results: PT/INR, D-dimer PT 15.6 Seconds (9.4-12.1) H 08/08/18 08:45 Consult Discharge Plan - Plan Referrals: Noni Wells [employer] [Primary Care Provider] - 08/11/18 9:45 am <Anant Joshua - Last Filed: 08/08/18 20:44> Date of Encounter: 08/08/18 (1) Rhinovirus infection Status: Acute (2) Neutropenia Status: Acute Qualifiers: Neutropenia type: unspecified Qualified Code(s): D70.9 - Neutropenia, unspecified (3) Thrombocytopenia Status: Acute - Constitutional Vitals: Vital Signs Temp Pulse Resp BP Pulse Ox 08/08/18 16:47 98.2 F 112 20 132/88 93 08/08/18 12:30 105 136/92 08/08/18 12:00 99 130/88 08/08/18 11:30 97 127/84 08/08/18 10:42 98.5 F 95 17 117/78 94 08/08/18 09:55 92 129/87 98 08/08/18 09:47 96 124/85 97 08/08/18 08:27 97 08/08/18 07:11 99.6 F 105 17 142/96 95 08/08/18 03:46 99.5 F 106 16 127/83 94 08/07/18 22:56 98.3 F 101 17 121/82 91 Intake and Output 08/08/18 08/08/18 08/09/18 08:59 16:59 00:59 Intake Total 1100 / 1100 350 / 350 Output Total 350 / 350 500 / 500 Balance -350 / -350 600 / 600 350 / 350 Intake: IV Fluids 1100 / 1100 350 / 350 Lactated Ringers 1,000 ML @ 75 1000 / 1000 mls/hr IVC .[id number] [facility] Rx#: [id number] Maxipime 2,000 MG In 0.9 % 100 / 100 Sodium Chloride (Mini-Bag +) 100 ML @ 200 mls/hr IVPB Q12HR [facility] Rx#:[id number] Vancocin 1,250 MG In 0.9 % 250 / 250 Sodium Chloride 250 ML @ 166.67 mls/hr IVPB Q12H [facility] Rx#: [id number] Rocephin 2,000 MG In 0.9 % 100 / 100 Sodium Chloride (Mini-Bag +) 100 ML @ 200 mls/hr IVPB DAILY [facility] Rx#:[id number] Output: Urine 350 / 350 500 / 500 Other: Weight 90.2 kg Patient Weight 08/09/18 00:59 Weight 90.2 kg Oncology: Obj Data - Labs CBC & Chem 7: 08/08/18 04:13 08/08/18 04:13 Labs: Laboratory Results - last 24 hr 08/06/18 08/06/18 08/07/18 17:47 17:47 02:36 WBC RBC Hgb Hct MCV MCH MCHC RDW Plt Count MPV Lymphocytes % Monocytes % Lymphocytes # Monocytes # Nucleated RBCs/100 WBC Platelet Estimate Immature Plt Fraction PT INR Fibrinogen Sodium Potassium Chloride Carbon Dioxide BUN Creatinine Est GFR ( Amer) Est GFR (Non-Af Amer) BUN/Creatinine Ratio Glucose POC Glucose Est Mean Plasma Glucose 154 Hemoglobin A1c 7.0 H Calculated Osmolality Calcium Ferritin Total Bilirubin AST ALT Alkaline Phosphatase Lactate Dehydrogenase Serum Total Protein Albumin Globulin Albumin/Globulin Ratio Lyme Total Antibody Negative EBV Capsid Ag IgM Ab Negative Hepatitis A IgM Ab Hep Bs Antigen Hep B Core IgM Ab Hepatitis C Ab Screen HIV Ag/Ab Combo Qual 08/07/18 08/08/18 08/08/18 20:30 04:13 04:13 WBC 19.1 H D RBC 3.33 L Hgb 10.1 L Hct 30.5 L MCV 91.6 MCH 30.3 MCHC 33.1 RDW 15.7 H Plt Count 45 L MPV 10.3 Lymphocytes % 77.0 Monocytes % 23.0 Lymphocytes # 14.7 H Monocytes # 4.4 H Nucleated RBCs/100 WBC 0.3 H Platelet Estimate Decreased L Immature Plt Fraction 4.6 PT INR Fibrinogen Sodium 133 L Potassium 3.8 Chloride 100 Carbon Dioxide 26 BUN 28 H Creatinine 1.28 Est GFR ( Amer) > 60 Est GFR (Non-Af Amer) 60 BUN/Creatinine Ratio 22 Glucose 96 POC Glucose 87 Est Mean Plasma Glucose Hemoglobin A1c Calculated Osmolality 281 Calcium 8.8 Ferritin Total Bilirubin 0.7 AST 92 H ALT 124 H Alkaline Phosphatase 91 Lactate Dehydrogenase Serum Total Protein 5.4 L Albumin 3.2 L Globulin 2.2 L Albumin/Globulin Ratio 1.5 Lyme Total Antibody EBV Capsid Ag IgM Ab Hepatitis A IgM Ab Hep Bs Antigen Hep B Core IgM Ab Hepatitis C Ab Screen HIV Ag/Ab Combo Qual 08/08/18 08/08/18 08/08/18 04:13 04:13 08:45 WBC RBC Hgb Hct MCV MCH MCHC RDW Plt Count MPV Lymphocytes % Monocytes % Lymphocytes # Monocytes # Nucleated RBCs/100 WBC Platelet Estimate Immature Plt Fraction PT 15.6 H INR 1.4 Fibrinogen Sodium Potassium Chloride Carbon Dioxide BUN Creatinine Est GFR ( Amer) Est GFR (Non-Af Amer) BUN/Creatinine Ratio Glucose POC Glucose Est Mean Plasma Glucose Hemoglobin A1c Calculated Osmolality Calcium Ferritin > 1500 H Total Bilirubin AST ALT Alkaline Phosphatase Lactate Dehydrogenase 2000 H Serum Total Protein Albumin Globulin Albumin/Globulin Ratio Lyme Total Antibody EBV Capsid Ag IgM Ab Hepatitis A IgM Ab Hep Bs Antigen Hep B Core IgM Ab Hepatitis C Ab Screen HIV Ag/Ab Combo Qual 08/08/18 08/08/18 12:42 15:07 WBC RBC Hgb Hct MCV MCH MCHC RDW Plt Count MPV Lymphocytes % Monocytes % Lymphocytes # Monocytes # Nucleated RBCs/100 WBC Platelet Estimate Immature Plt Fraction PT INR Fibrinogen 522 H Sodium Potassium Chloride Carbon Dioxide BUN Creatinine Est GFR ( Amer) Est GFR (Non-Af Amer) BUN/Creatinine Ratio Glucose POC Glucose Est Mean Plasma Glucose Hemoglobin A1c Calculated Osmolality Calcium Ferritin Total Bilirubin AST ALT Alkaline Phosphatase Lactate Dehydrogenase Serum Total Protein Albumin Globulin Albumin/Globulin Ratio Lyme Total Antibody EBV Capsid Ag IgM Ab Hepatitis A IgM Ab Nonreactive Hep Bs Antigen Nonreactive Hep B Core IgM Ab Nonreactive Hepatitis C Ab Screen Nonreactive HIV Ag/Ab Combo Qual Nonreactive - Impressions Impressions Biopsy CT 08/08/18 00:00 IMPRESSION: 1. CT guided bone marrow aspiration and core needle bone biopsy as discussed above. D/ / Trevin Reza MD / Trevin Reza MD Interpreting Provider: Trevin Reza MD Bone Marrow Biopsy w/ CT 08/08/18 00:01 IMPRESSION: 1. CT guided bone marrow aspiration and core needle bone biopsy as discussed above. D/ / Trevin Reza MD / Trevin Reza MD Interpreting Provider: Trevin Reza MD Abdomen/Pelvis CT 08/08/18 16:00 IMPRESSION: 1. Significant splenomegaly measuring 19.7 cm in length. There are findings consistent with an acute versus subacute infarct at the posterior margin involving approximately 50% of the parenchyma. No evidence of hemorrhage. The splenic vein and artery are patent. 2. Mild retroperitoneal lymphadenopathy. These findings may relate to lymphoma. 3. Trace pelvic ascites. 4. New mild bilateral pleural effusions and lower lobe patchy consolidation not seen on the CT chest exam 08/06/2018. D/ /08/2018 18:06:35 Dominic Hill MD / [email or web address] Interpreting Provider: Dominic Hill MD - ABG Interpretation ABG results: PT/INR, D-dimer PT 15.6 Seconds (9.4-12.1) H 08/08/18 08:45 Inpatient Charges Provider: Dr. Divya Joshua Follow up - Inpatient: [id number] - Attending Attestation I examined this patient and my medical decision-making was reviewed with the resident. I agree with the documented findings, disposition and treatment plan as described except to the extent set forth below. CT imaging revealed splenomegaly measuring 19.7 cm. He has mild retroperitoneal adenopathy as well as mild pelvic ascites. He has now developed bilateral infiltrates involving the lung. Peripheral smear reveals circulating blasts as well as an increased number of monocytes. On aspirate, there were 95% monoblasts by preliminary report. 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 Coagulation studies are normal as his fibrinogen. He has been placed on allopurinol 300 mg daily. He will be transferred to [facility] for acute management. I discussed with the patient as well as his today the ramifications of these findings. The patient has a treatable potentially curable aggressive malignancy. This will likely require a prolonged hospital stay for between 2 and 3 weeks. Intensive chemotherapy will be employed no placement risk for infection and other complications. Depending upon nature of his cancer, bone marrow transplantation may also need to be considered in the future. The patient and his are certainly upset by this information to understand the gravity situation and are willing to proceed to transfer to [facility] for further management. Bone marrow aspirate and biopsy were performed today with results pending. Tissue has been sent for cytogenetics and fish.
[2018-08-08] MEDS: Loratadine/Pseudophed (12 HR) 1 EACH TABLET PO SCH (10:50)
[2018-08-08] MEDS: Aspirin Enteric Coated 81 MG Tablet PO SCH (10:50)
[2018-08-08 11:58] LABS: Lymphocytes # 14.7 K/mcL (0.6-4.6); Monocytes # 4.4 K/mcL (0.0-1.3)
[2018-08-08 11:59] LABS: Platelet Estimate Decreased (Normal)
--- NOTE | 2018-08-08 12:07 | Infectious Disease Consult ---
Date of Encounter: 08/08/18 Time of Encounter: 12:01 Assessment and Plan (1) Sepsis Status: Acute Assessment and plan: The patient had two sepsis criteria on admission. Likely secondary to bronchitis. Today, he has developed leukocytosis, but his ANC count is 0. He continues to have some tachycardia. Tachypnea has resolved. Blood cultures drawn 08/06/18 are NGTD x 2 sets. Lactic acid was normal. Qualifiers: Sepsis type: sepsis due to unspecified organism Qualified Code(s): A41.9 - Sepsis, unspecified organism (2) Neutropenia Status: Acute Assessment and plan: Etiology unclear. WBC normal with monocytosis and ANC ~200 on admission. WBC elevated today, but ANC 0. Peripheral smear shows atypical immature leukocytes and few definitive blasts concerning for neoplasm. Status post bone marrow biopsy 08/08/18. Pathology is pending. Hem/Onc consulted and following. CT chest showed scattered pulmonary nodules. Tick panel is pending, although low on differential. Recommend transfer to higher level of care, consider 2N. Get CT of the abdomen and pelvis to rule out infectious process as the patient' s lack of immune system could impact his ability to manifest symptoms of infection. Check HIV, hepatitis profile. Check Quantiferon and place PPD. Check fungal serologies--> Aspergillus galactomannan, Fungitell, Histoplasmosis , Blasto, and Crypto. Check S. pneumo and Legionella UATs. Discontinue Rocephin. Start Cefepime 2 grams IV Q12H. Start Vancomycin IV. Pharmacy to dose. Goal trough ~15. Duration of treatment depends on the clinical picture. Monitor renal function and for drug toxicity and dose-adjust antibiotics. Qualifiers: Neutropenia type: unspecified Qualified Code(s): D70.9 - Neutropenia, unspecified (3) Splenomegaly Status: Acute Assessment and plan: Etiology unclear. Abdominal exam benign. (4) Thrombocytopenia Status: Acute Assessment and plan: Etiology unclear. Platelets continue to drop. No acute bleeding noted on exam. Low index of suspicion for infectious etiology. Hem/Onc consulted. (5) Rhinovirus infection Status: Acute Assessment and plan: Likely bronchitis with causative organism Rhinovirus. Continue droplet precautions. Continue supportive care. Patient's immune system is very compromised, so recommend close monitoring and transfer to . (6) Anemia Status: Acute Assessment and plan: Hgb 10 today. Etiology unclear. Further workup and management per the primary and Hem/Onc teams. Qualifiers: Anemia type: unspecified type Qualified Code(s): D64.9 - Anemia, unspecified (7) SOB (shortness of breath) Status: Acute Assessment and plan: Likely secondary to bronchitis. CT chest negative for PNA, but does show multiple scattered noncalcified pulmonary nodules. Check S. pneumo and Legionella UATs. Check fungal serologies. Recommend pulmonary to evaluate. (8) Nausea & vomiting Status: Resolved Qualifiers: Vomiting type: cyclical vomiting Vomiting Intractability: intractable Qualified Code(s): G43.A1 - Cyclical vomiting, intractable (9) Weakness generalized Status: Acute (10) Otitis media, chronic, bilateral Status: Chronic Assessment and plan: Per ENT, appears serous and not bacterial. Continue supportive care. Decongestants and Flonase per the ENT team's recommendations. (11) Nasal sinus polyp Status: Chronic (12) Cigarette nicotine dependence Status: Chronic Qualifiers: Substance use status: uncomplicated Qualified Code(s): F17.210 - Nicotine dependence, cigarettes, uncomplicated Infectious Disease HPI - Data of Consult Patient: new to practice Consult date: 08/08/18 Requesting Physician: Celio Galindo Primary Care Provider: Noni Wells CNP - Consult Narrative Reason for consult: Illness [place] History of present illness: Mr. Manzo is a 47 year old male with no major past medical history. The patient was admitted to the hospital August 06 for thrombus cytopenia, splenomegaly, anemia, and chest pain. We are consulted August 08 for further recommendations for this patient in the setting of illness since [place]. Briefly, the patient is a 47-year-old male with a past medical history as stated above. The patient presented to the emergency department with complaints of chest pain, cough, dyspnea on exertion, bilateral ear pain, and decreased hearing. He reported onset of symptoms about 4 weeks prior to admission after he swam in [facility]. Upon arrival, the patient was afebrile. He was tachycardic with tachypnea. His white blood cell count was normal, but his ANC was only about 200 and he had 51% monocytes. He also was noted to have a mild acute kidney injury. Lactic acid was normal. AST and ALTs were elevated at 85 and 148, respectively. His alkaline phosphatase was normal. LDH was elevated at 2017. Troponins were negative 2. Blood cultures were obtained 3 sets. He had a chest x-ray that showed indeterminate nodular density in the retrocardiac region. He underwent a CT of the chest that showed bilateral lower lobe atelectasis and parenchymal scars without acute consolidation. He also had multiple scattered nonspecific subcentimeter noncalcified nodules and there was an incidental noting of splenomegaly. On physical exam, the patient was noted to have findings concerning for bilateral otitis media. He was started. Clear IV Rocephin and admitted to the hospital for further evaluation. Since admission, the patient has remained afebrile. He continues to have intermittent episodes of tachycardia. Tachypnea has resolved. Since admission , his white blood cell count has gone up to 19,000, there is no differential on today's CBC. He had a transthoracic echocardiogram showed an EF 65%. A stress test was ordered, but has not been completed due to the patient's tachycardia. ENT evaluated the patient and diagnosed patient with bilateral serous otitis media and does not recommend any further antibiotic therapy. He mom was consulted and recommended that a bone biopsy be performed, which was completed this morning. A peripheral smear was done that showed atypical immature leukocytes with a few definite blasts and no Kate rods or definitive atypical promyelocytes. There is evidence of normocytic anemia with anisocytosis and slight polychromasia, but no schistocytes or spherocytes. There is no urethral cytopenia, but no platelet clumping. According to the pathologist, the differential diagnosis for the atypical immature mononuclear cells include per monocytes are blasts. The blood smear findings are worrisome for a myeloid neoplasm with the differential including, but not limited to, an acute monocytic leukemia. A respiratory infectious panel was completely came back positive for rhinovirus. Lyme antibody and Monospot testing were negative. Blood cultures obtained in the ER no growth. Additional labs that are pending include EBV, the VC IgG and IgM, CMV, or Ehrlichia, and oh/PE of the stool. Currently, the patient's on IV Rocephin. We have been asked to evaluate and make further recommendations. During my exam today, the patient states that he began to experience bilateral ear fullness and decreased hearing in bilateral ears about a month ago on the day that he came back from visiting [facility]. He reports swimming in the water and submerging his face/head multiple times. He reports subjective chills , but no fevers. He does report soaking nightsweats as well. Denies headache or neck pain. Denies nasal congestion or sore throat. Reports a recent history of cough productive of white sputum. Reports intermittent midsternal chest pain that radiates through to the middle of the back and describes the pain as muscle spasm and makes it hard to breath. Denies contributing or alleviating factors. Denies nausea, vomiting, or diarrhea. Denies abdominal pain, urinary complaints, or penile discharge/lesions. Reports a poor appetite. Denies joint pain or swelling. Denies oral thrush or skin rashes. Denies tick or mosquito bites. The patient lives at home with his and adult children. Reports traveling to [place] in the past month as mentioned above. Reports smoking 1.5-2 packs of cigarettes per day. Denies ETOH or illicit drug use. Denies any known chronic infectious diseases. Works as a lawn mower mechanic. CC: Celio Galindo Past Med Surg Social Fam HX - Past Medical History Attestation: Yes The following information was validated with the patient. Source: old records reviewed, nursing notes reviewed Medical history: no medical history Psychiatric history: no psych history - Past Surgical History Surgical History: other Additional surgical history: chicken bone removal- - Social History Smoking Status: Heavy tobacco smoker Packs per day: 2 Smokeless Tobacco Status: No Alcohol use: occasionally Drug use: none Occupational status: employed Current living situation: Home, With Family Activity Level: Independent ambulation Recent Out of Country Travel Within the Last 8 Weeks: No Exposure or Possible Exposure to Illness During Travel: No - Family History Father Race: Family Member Ethnicity: Non- Living Status: Age at : 50 Cause of : Thyroid cancer Hx Family Cancer: Yes (Thyroid) Mother Race: Family Member Ethnicity: Non- Living Status: Still Living Hx Family Cardiac Disorders: Yes (Triple bypass, CAD) Hx Family Respiratory Disorders: Yes (COPD, Asthma) Hx Family Endocrine Disorder: Yes (DM) Brother Race: Family Member Ethnicity: Non- Living Status: Still Living Hx Family Endocrine Disorder: Yes (DM) Sister Race: Family Member Ethnicity: Non- Living Status: Still Living Hx Family Cardiac Disorders: Yes (Heart murmur) Infectious Disease-CN:Meds Albuterol Sulfate [Albuterol Inhaler] 2 puff IH Q4HR #1 inhaler 07/22/18 [Rx] Loratadine [Claritin] 10 mg PO DAILY #14 capsule 07/22/18 [Rx] Esomeprazole Magnesium [Nexium] 20 mg PO DAILY 08/07/18 [History] 3 Allergy/AdvReac Type Severity Reaction Status Date / Time No Known Allergies Allergy Verified 08/06/18 14:45 All systems: reviewed and no additional remarkable complaints except as stated Exam - Constitutional Vitals: Temp Pulse Resp BP Pulse Ox 98.5 F 95 17 117/78 94 08/08/18 10:42 08/08/18 10:42 08/08/18 10:42 08/08/18 10:42 08/08/18 10:42 General appearance: average body habitus, cooperative, no acute distress - Head Head exam: Present: atraumatic, normal inspection, normocephalic - Eye Eye exam: Present: EOMI, normal appearance, PERRL Pupils: Present: normal accommodation - ENT ENT exam: Present: mucous membranes moist Additional comments: Poor dentition noted. - Neck Neck exam: Present: normal inspection. Absent: meningismus - Respiratory Respiratory exam: Present: rhonchi (RUL). Absent: rales, respiratory distress, wheezes - Cardiovascular Cardiovascular exam: Present: +S1, +S2, tachycardia. Absent: irregular rhythm - GI/Abdominal GI/Abdominal exam: Present: normal bowel sounds, soft. Absent: distended, tenderness - Extremities Exam Extremities exam: Present: normal inspection. Absent: joint swelling, pedal edema, tenderness - Back Exam Back exam: Present: normal inspection, paraspinal tenderness (Thoracic spine). Absent: vertebral tenderness - Neurological Exam Neurological exam: Present: alert, oriented X3, no focal deficits - Psychiatric Psychiatric exam: Present: normal affect, normal mood - Skin Skin exam: Present: dry, intact, normal color, warm Infectious Disease CN: Results - Labs CBC & Chem 7: 08/08/18 04:13 08/08/18 04:13 Cultures: Cultures 08/06/18 20:48 Blood Fungal Culture - Preliminary Peripheral Venipuncture Culture is incubating and being continuously monitored for growth. Final report to follow. 08/06/18 18:35 Blood Culture - Preliminary Peripheral Venipuncture Culture is incubating and being continuously monitored for growth. Final report to follow. 08/06/18 18:35 Blood Culture - Preliminary Peripheral Venipuncture Culture is incubating and being continuously monitored for growth. Final report to follow. Serology: Serology 08/06/18 08/06/18 08/06/18 Range/Units 20:45 17:47 17:47 Chlamy pneumoniae PCR Not Detected (Not Detect) Adenovirus (PCR) Not Detected (Not Detect) B. pertussis DNA (PCR) Not Detected (Not Detect) B.parapertussis DNA PCR Not Detected (Not Detect) Lyme Total Antibody Negative (Negative) Coronavirus OC43 (PCR) Not Detected (Not Detect) Coronavirus HKU1 (PCR) Not Detected (Not Detect) Coronavirus 229E (PCR) Not Detected (Not Detect) Coronavirus NL63 (PCR) Not Detected (Not Detect) Human Metapneumovir PCR Not Detected (Not Detect) Infectious [place] Assay Negative (Negative) Influenza A (H1) PCR Not Detected (Not Detect) Influ A (H1N1/09) PCR Not Detected (Not Detect) Influenza A (H3) PCR Not Detected (Not Detect) Influenza A Untype (PCR) Not Detected (Not Detect) Influenza Type B (PCR) Not Detected (Not Detect) M.pneumoniae DNA (PCR) Not Detected (Not Detect) Parainfluenza 1 (PCR) Not Detected (Not Detect) Parainfluenza 2 (PCR) Not Detected (Not Detect) Parainfluenza 3 (PCR) Not Detected (Not Detect) Parainfluenza 4 (PCR) Not Detected (Not Detect) RSV (PCR) Not Detected (Not Detect) Entero/Rhino (PCR) DETECTED A (Not Detect) Consult Discharge Plan - Plan Referrals: Noni Wells CNP [Primary Care Provider] - 08/11/18 9:45 am - Attending Attestation I examined this patient and my medical decision-making was reviewed with the Resident Physician. I agree with the documented findings, disposition and treatment plan as described except to the extent set forth below. This is an addendum to original report dictated by Olesya Jeter CNP. Please refer to his note for full detail. Patient is a 47-year-old gentleman with no real past medical history presented to [place] with the symptoms mentioned above. Patient was initially he had possible otitis media and was treated with amoxicillin. Patient was then thought possibly a pneumonia was treated with levofloxacin. Patient came in a CT of the chest reveals bilateral lower lobe atelectasis and parenchymal scar with no acute airspace consolidation and multiple scattered nonspecific subcentimeter throughout both lungs, most likely reflecting benign granuloma. Patient's ANC is almost 0 today with 70% monocytes. 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 With Asians immune status. Patient denies ever traveling outside the past, never been incarcerated never served in the . Patient never had any chronic infections including TB, hepatitis or HIV. At this point based on the severity of the situation I am very concerned. We will do CT abdomen and pelvis and we will start broad-spectrum antibiotics and check fungal serology, HIV, TB, hepatitis profile. Await blood cultures to finalize. Prognosis guarded. I spoke with the hospitalist team as the patient can be transferred to unit 2 [address]. for closer observation and he was agreeable for that
[2018-08-08] MEDS ORDERED: Tuberculin Skin Test (PPD) 5 TUB/0.1 ML VIAL ID ONE (14:44)
[2018-08-08] MEDS ORDERED: Isovue-370 500 ML INFUS..BTL IV ONE (14:44)
[2018-08-08] MEDS ORDERED: Vancomycin 1 EACH in 0.9 % Sodium Chloride 250 ML IVPB SCH (15:00)
--- NOTE | 2018-08-08 15:27 | Electrocardiograph Report ---
[address] [place], [place] [address] Test Date: 2018-08-06 Pat Name: Perry Manzo Department: [id number] Room: 3B39 Gender: M [employer] Supervisor: : 1970 Requested By: Jacob Suarez Order Number: [id number] Reading MD: Jose Mo Measurements Intervals Jordan Rate: 103 P: 11 RI: 135 QRS: 11 QRSD: 79 T: 21 QT: 322 QTc: 422 Interpretive Statements Sinus tachycardia Electronically Signed On 08-08-2018 15:25:23 EDT by Jose Mo
[2018-08-08 16:14] LABS: HIV-1&2 Antibody & p24 Ag Nonreactive (Nonreactive); Hepatitis A Antibody IgM Nonreactive (Nonreactive); Hepatitis B Core IgM Nonreactive (Nonreactive); Hepatitis B Surface Antigen Nonreactive (Nonreactive); Hepatitis C Virus Antibody Nonreactive (Nonreactive)
[2018-08-08 16:48] VITALS: BP 132/88
--- NOTE | 2018-08-08 17:40 | Discharge Summary ---
- NOTES TO OUTPATIENT PROVIDER Notes to Outpatient Provider: Patient will be transferred to [facility] Orders not resulted at time of discharge: Pending orders 08/06/18 17:47 Anaplasma phag IgG & IgM Routine Babesia Microti IgG & IgM Routine Ehrlichia chaffeensis IgG/IgM Routine 08/06/18 18:07 NM ebony perf SPECT multi [NM] Routine 08/06/18 18:09 Ova & Parasite Exam Routine 08/06/18 18:35 Culture,Blood [BC] Stat 08/06/18 20:48 Fungal Culture,Blood [MYC] Stat 08/08/18 00:01 Bone Marrow, Flow & Cytogen Routine Bone Marrow Other [PTH] Routine Bone Marrow [PTH] Routine 08/08/18 04:13 BCR-ABL1t(9;22)Diag,Rflx Quant AM 0400 Cytomegalovirus Quant PCR Routine 08/08/18 08:45 Peripheral Bld Flow-[facility] Routine 08/08/18 10:00 SP pharm nuclear stress Routine 08/08/18 15:07 Aspergillus galactomannan Ag Routine Blastomyces Ab by EIA, rflx ID Routine Fungitell (1,3)-[id number] Routine Histoplasma Antigen Routine QuantiFERON-TB Gold In-Tube Routine 08/08/18 16:00 CT abd pelvis w iv no oral [CT] Routine 08/09/18 04:00 Complete Blood Count [HEME] AM 0400 Comprehensive Metabolic Panel AM 0400 08/10/18 04:00 Complete Blood Count [HEME] AM 0400 Comprehensive Metabolic Panel AM 0400 Date of Encounter: 08/08/18 Time of Encounter: 11:00 - Discharge Diagnosis (1) Sepsis Priority: Secondary Status: Ruled-out Qualifiers: Sepsis type: sepsis due to unspecified organism Qualified Code(s): A41.9 - Sepsis, unspecified organism (2) Weakness generalized Priority: Primary Status: Acute (3) Chest pain Priority: Secondary Status: Acute Qualifiers: Qualified Code(s): R07.9 - Chest pain, unspecified (4) Splenomegaly Priority: Primary Status: Acute (5) Thrombocytopenia Priority: Primary Status: Acute (6) Anemia Priority: Primary Status: Acute Qualifiers: Anemia type: unspecified type Qualified Code(s): D64.9 - Anemia, unspecified (7) Hypokalemia Priority: Secondary Status: Acute (8) Otitis media, chronic, bilateral Priority: Secondary Status: Chronic Hospital course: Patient is a 39-year-old male with past medical history significant for GERD who presented to the ER on 08/06/18 due to chest discomfort in addition to shortness of breath. Patient reports of associated symptoms of fever, chills, nausea, vomiting, abdominal pain, ear pain (worse in right than left), night sweats, allover aches and pains. In the ER, patient was found to have a lactate dehydrogenase 2017 with a hemoglobin of 11.4 and RDW of 15.5. Patient was admitted to the medical surgical floor with hematology and infectious disease consult. During patients hospital stay his white blood count was 19.1 and hemoglobin 10.1 with lymphocytes 14.7 and monocytes 4.4. Peripheral blood smear was done and referral blasts identified with concerns for AML; bone marrow biopsy pending. Recommendations to transfer patient to [facility] for management of AML. [facility] transfer center was called and patient will be accepted under Dr. PERALTA to the hematology oncology service. - Time Spent with Patient Total time spent providing and/or coordinating discharge services: Less than 30 minutes - Discharge Medications Home Medications: Albuterol Sulfate [Albuterol Inhaler] 2 puff IH Q4HR #1 inhaler 07/22/18 [Rx] Loratadine [Claritin] 10 mg PO DAILY #14 capsule 07/22/18 [Rx] Esomeprazole Magnesium [Nexium] 20 mg PO DAILY 08/07/18 [History] Allergies/Adverse Reactions: 3 Allergy/AdvReac Type Severity Reaction Status Date / Time No Known Allergies Allergy Verified 08/06/18 14:45 Date of admission: 08/06/18 17:19 Primary care physician: Noni Wells CNP Consults: 08/06/18 18:01 Consult to Product Handler [CONS] Routine Reason for SW Consult: Please assess patient for possible home needs for post -discharge planning. 08/06/18 18:10 Consult to Infectious Diseases [CONS] Routine Consulting Provider: Ramirez Disease Sadie Reason for Consult: Patient reports swimming in [facility] approximately six weeks ago many times during their stay there and he began feeling sick two weeks later w/bilateral ear infections. Was placed on PO amoxicillin and a second abx when first failed. Still feels sick w/fever, chills, nausea, vomiting, and splenomegaly. Blood cultures, Monotest/EBV, respiratory infection panel, ova/parasite panels ordered. Platelets 51 on admission. Call Completed: Yes Consult to Oncology Hematology [CONS] Routine Consulting Provider: Anant Joshua Reason for Consult: Patient reports swimming in [facility] approximately six weeks ago many times during their stay there and he began feeling sick two weeks later w/bilateral ear infections. Was placed on PO amoxicillin and a second abx when first failed. Still feels sick w/fever, chills, nausea, vomiting, and splenomegaly. Blood cultures, Monotest/EBV, respiratory infection panel, ova/parasite panels ordered. Platelets 51 on admission. Call Completed: Yes 08/06/18 18:33 Consult to ENT [CONS] Routine Consulting Provider: PIERO Noel Reason for Consult: Patient reports swimming in [facility] approximately six weeks ago many times during their stay there and he began feeling sick two weeks later w/bilateral ear infections. Was placed on PO amoxicillin and a second abx when first failed. Still feels sick w/fever, chills, nausea, vomiting, and splenomegaly. Blood cultures, Monotest/EBV, respiratory infection panel, ova/parasite panels ordered. Platelets 51 on admission. Call Completed: Yes - Constitutional Vitals: Temp Pulse Resp BP Pulse Ox 98.2 F 112 20 132/88 93 08/08/18 16:47 08/08/18 16:47 08/08/18 16:47 08/08/18 16:47 08/08/18 16:47 General appearance: Present: cooperative, mild distress (Weakness/SOB), A&O X 3 , pleasant, answers questions appropriately Exam: Gen.: Nonacute distress, alert and oriented 3 ENT: Mucosal membranes moist Respiratory: Lungs are clear to auscultation bilaterally without any wheezing rhonchi or rales Cardiovascular: Normal S1 and S2 regular rate rhythm no murmurs rubs or gallops Abdomen: Soft, nontender and nondistended with positive bowel sounds Extremities: No lower extremity edema Skin: Normal color - Patient Status Disposition: Transfer Other Condition: Fair - Discharge Instructions Follow Up With: Noni Wells CNP [Primary Care Provider] - 08/11/18 9:45 am
[2018-08-08] MEDS ORDERED: Cefepime HCl 2,000 MG in 0.9 % Sodium Chloride Mini Bag 100 ML IVPB SCH (18:00)
[2018-08-08] MEDS ORDERED: Aminoglycoside Consult 1 EACH MC ONE (20:02)
[2018-08-09 13:12] LABS: Hematocrit RBC Folate 33.9 %
[2018-08-10 09:54] LABS: Anaplasma phagocytophilum IgG <1:80 (<1:80); Anaplasma phagocytophilum IgM < 1:16 (< 1:16)
[2018-08-10 23:04] LABS: CMV Quant by PCR IU <227 IU/mL; CMV Quant by PCR Log IU <2.4 log IU/mL; CMV Quant by PCR copies <390 cpy/mL
[2018-08-11 02:30] LABS: A.galactomannan Ag Index 0.11
[2018-08-11 10:13] LABS: CMV Quant by PCR Interp NOT DETECTED (Not Detected); CMV Quant by PCR Log copies <2.6 log cpy/mL
[2018-08-12 21:17] LABS: BCR-ABL1 Specimen Source NOT SPECIFIED
== END 2018-08-08 20:03 | disposition short-term general hospital (02) | DRG 835 ==
LOC: EMEROOARM 14:41 → 3BNU 14:41 → OBSVTOIN 17:19 → SUATTDRO 17:19 → 3BNU 18:45
PROVIDERS: ADMIT Internal Medicine; ATTEND Hospitalist